=== PATIENT | male | born 1940 | race Caucasian/White ===

== ENCOUNTER 2024-04-07 12:39 | Emergency (ER) | payer MEDICARE, OTHER, SELFPAY ==
[2024-04-07 12:41] VITALS: BMI 24.4
[2024-04-07 12:42] VITALS: BP 144/80
[2024-04-07 12:44] VITALS: BP 144/80
--- NOTE | 2024-04-07 13:13 | ED.GENMED ---
History of Present Illness
General
Chief Complaint: Male Genito-Urinary Symptoms
Source: patient
Time Seen by Provider: 04/07/24 12:49
History of Present Illness
History of Present Illness:
83-year-old male with past medical history of BPH/urinary retention status post chronic suprapubic Christopher catheter, A-fib, DVT, COPD presenting to the ER for evaluation after patient woke up this morning noticing he had decreased urinary output
within his suprapubic catheter today, attempted to flush the Christopher catheter but was meeting significant resistance. Visiting nurse came to the house and attempted to flush the Christopher catheter but the catheter became dislodged prompting them to
recommend the patient come to the ER for further evaluation. Patient does not know who his urologist is but states it is at this facility. He denies any fevers, chills, rigors, back or flank pain or any other concerns at this time.
Past History
Past History
ED Past Medical History: COPD, HTN, Hypercholesterolemia and Other (DVT, PE, history of back pain, peripheral neuropathy, shortness of breath, pneumonia, prostatic hypertrophy, kidney stones, urinary tract infection and retention, arthritis)
ED Past Surgical History: Other (Right knee surgery, hernia surgery, and removal of a cyst)
Patient has exhibited threatening behavior?: No
PSI?: No
Social History
Tobacco: Former smoker
Alcohol: None
Drug: None
Personal:
Living: with family
Employment: Retired
Review of Systems
Review of Systems
All Other Systems: ROS reviewed and negative except as documented in HPI and ROS
Phy Exam
Physical Exam
Physical Exam:
GENERAL: Alert , in no apparent distress
EYE: conjunctiva clear
Head: Normocephalic atraumatic
NECK: Supple,
ENT: mmm.
LUNGS: no acute respiratory distress
ABDOMEN: Suprapubic tract without any overlying erythema or drainage
NEUROLOGICAL: Alert and oriented
SKIN: Warm and dry, skin intact.
MUSCULOSKELETAL: well perfused.
PSYCH: Normal and appropriate interaction.
Scores
Heart Failure Risk
Heart Failure Risk Score: Not Applicable
Heart Score for Chest Pain Patients
STEMI patient?: Not applicable
Withdrawal Assessment of Alcohol
Withdrawal Assessment Completed?: Not applicable
Course
Vital Signs
Initial and Last Documented VS:
Initial Vital Signs
Temp Pulse Resp BP Pulse Ox
98.2 F 80 16 144/80 98
04/07/24 12:42 04/07/24 12:42 04/07/24 12:42 04/07/24 12:42 04/07/24 12:42
Last Documented Vital Signs
Temp Pulse Resp BP Pulse Ox
98.2 F 69 22 144/80 97
04/07/24 12:42 04/07/24 13:45 04/07/24 13:00 04/07/24 12:44 04/07/24 13:45
MDM/Problems Addressed
Differential Diagnosis Includes:
Clogged catheter, less concern for urinary tract infection given he does not have any fevers or other infectious symptoms, suprapubic tract complication
MDM/Problems Addressed:
83-year-old male presenting to the ER for evaluation of suprapubic catheter complication. Patient believes he had an 18 [place] suprapub[address] catheter in place. I attempted to replace with an 18 [place] but was unable to do so. Attempted 16 [place]
which was successful and had return of blood-tinged urine with moderate amount of sediment which I suspect was the likely cause of the initial clogged catheter. Patient otherwise hemodynamically stable and okay for discharge home. I did attempt to
contact patient's via cell phone as she is currently not emergency department but this went to voicemail.
*Pulse Oximetry
Patient hypoxic: no
*Critical Care Note
Total Time (30-74mins, 75-104mins- exclusive of procedures): Not Applicable
Data Reviewed
Review of Other/Old Records Reveals: Labs and Records
Patient Management
Discussion with other providers: Floor Sweeper
Escalation/DeEscalation of care consider admission/obs:
Spoke to urology on-call, Dr. Mayer. Agrees with plan. Hold coumadin 48 hours, will notify Dr. Doyle and have patient call the office Tuesday for follow up
ED Attending Note
-
Portions of this chart may have been created with voice recognition software.� Occasional wrong word or��sound alike� substitutions may have occurred due to the inherent limitations of voice recognition software.
Discharge Plan
Departure
Patient Disposition: Home (Routine Discharge)
Date of Disposition: 04/07/24
Time of Disposition: 13:14
Patient with high blood pressure during this ER visit?: Yes
Discharge Problem:
Encounter for suprapubic catheter care
Instructions: How to Care for Your Christopher Catheter, Male
Prescriptions:
No Action
cetirizine 10 MG tablet
10 mg PO HS
folic acid 0.4 MG tablet
0.8 mg PO DAILY
albuterol sulfate 1 PUFF HFA aerosol inhaler
2 puff inhalation R Q4 PRN (Reason: sob/wheezing)
warfarin 1 mg Tablet
1 mg PO MOTH@1800
warfarin 1 mg tablet
3 mg PO SUTUFRSA@1800
polyethylene glycol 3350 [Miralax] 17 gram Powder In Packet
17 g PO DAILY PRN (Reason: CONSTIPATION)
warfarin 1 mg Tablet
2 mg PO WE@1800
Arthritic D
2 tab PO BID
amoxicillin-pot clavulanate 875-125 mg Tablet
1 tab PO Q12 5 Days Qty: 10 0RF
Interventions
Interventions:
*Risk Screen - Suicide Last Done: 04/07/24 12:42
*General Assessment Last Done: 04/07/24 12:42
*Neglect/Abuse Screening Last Done: 04/07/24 12:42
ED- Fall Risk Assessment Last Done: 04/07/24 12:42
*Nursing Disposition Last Done: 04/07/24 14:50
ED-Male Genitourinary Assessment Last Done: 04/07/24 12:42
Discharge Date and Time
Print Language: [place] ISLANDER
== END 2024-04-07 15:30 | disposition home or self-care (01) ==
LOC: EMR 12:39
PROVIDERS: EMERGENCY PHYSICIAN Emergency Medicine; FAMILY PHYSICIAN Internal Medicine
DX: Z46.6 Encounter for fitting and adjustment of urinary device (principal); E78.00 Pure hypercholesterolemia, unspecified; I10 Essential (primary) hypertension; J44.9 Chronic obstructive pulmonary disease, unspecified; I48.91 Unspecified atrial fibrillation; N40.1 Benign prostatic hyperplasia with lower urinary tract symptoms; Z86.718 Personal history of other venous thrombosis and embolism; Z87.891 Personal history of nicotine dependence
CPT/HCPCS: 51705; 99283; 51702

== ENCOUNTER 2024-07-04 23:58 | Inpatient (IN) | payer MEDICARE, OTHER, SELFPAY ==
[2024-07-04 16:29] VITALS: BP 155/80; BMI 23.5
--- NOTE | 2024-07-04 17:10 | EDRN ---
This RN attempted to manually flush pt.'s suprapubic catheter w/ NSS irrigation solution, about 20 cc NSS flushed into catheter, no resistance met. Pt. did c/o burning during flushing, no output able to be pulled back via irrigation piston, no
drainage noted to urinary drainage bag once reconnected. BOTTOM CAGER at bedside, aware.
[2024-07-04 18:00] VITALS: BP 118/82
--- NOTE | 2024-07-04 18:11 | ED.GENMED ---
History of Present Illness
<Sarah Razo FUNDRAISING SPECIALIST - Last Filed: 07/05/24 00:29>
General
Chief Complaint: Catheter/Tube Problem
Source: patient and spouse
Exam Limitations: none
Time Seen by Provider: 07/04/24 16:48
Nursing documentation reviewed up to this point in time: agreed with
History of Present Illness
History of Present Illness:
83 yo male with hx BPH/urinary retention, chronic suprapubic catheter presents for no drainage. States VN changed the catheter 11 a.m. today and he's had no drainage since. Has been drinking and eating as usual. Denies pain, distention.
Hx Afib, DVT, on Coumadin, COPD.
Past History
<Sarah Razo, FUNDRAISING SPECIALIST - Last Filed: 07/05/24 00:29>
Past History
ED Past Medical History: COPD, HTN, Hypercholesterolemia and Other (DVT, PE, history of back pain, peripheral neuropathy, shortness of breath, pneumonia, prostatic hypertrophy, kidney stones, urinary tract infection and retention, arthritis)
ED Past Surgical History: Other (Right knee surgery, hernia surgery, and removal of a cyst)
Patient has exhibited threatening behavior?: No
PSI?: No
Social History
Tobacco: Former smoker
Alcohol: None
Drug: None
Personal:
Living: with family
Employment: Retired
Review of Systems
<Sarah Razo, FUNDRAISING SPECIALIST - Last Filed: 07/05/24 00:29>
Review of Systems
Allergies reviewed?: Yes
All Other Systems: ROS reviewed and negative except as documented in HPI and ROS
: Reports other (no drainage from suprapubic catheter since changed at 11 a.m.)
Phy Exam
<Sarah Razo, FUNDRAISING SPECIALIST - Last Filed: 07/05/24 00:29>
Physical Exam
Physical Exam:
GENERAL: No acute distress. A&Ox3.
CONSTITUTIONAL: Afebrile.
EYES: clear, conjunctivae normal
ENMT: moist mucus membranes
RESPIRATORY: Regular respirations, nonlabored, lungs clear.
CARDIOVASCULAR: Regular rate and rhythm, no murmurs, no rubs.
GI: Soft, nontender, normal BS. Suprapubic catheter intact, small amount of blood around the opening, no drainage in the bag.
MUSCULOSKELETAL: Moves with ease. Well perfused.
SKIN: Warm, dry, pink
PSYCH: Normal mood and affect. Well kept, interactive and appropriate
NEUROLOGIC: Awake, alert and oriented. No focal neurological deficits
Course
<Sarah Razo NP - Last Filed: 07/05/24 00:29>
Orders/Labs/Results
Orders:
Orders
07/04/24 16:47
Bladder Scan- Treatment ONCE
07/04/24 19:01
CT Abd/pel Without Iv Or Oral Urgent
Comment:
Reason For Exam: suprapubic catheter not draining
07/04/24 21:14
US Urinary Bladder Only Urgent
Reason For Exam: Bladder/balloon evaluation
07/04/24 21:22
IV Insert/Care/Rem.- Treatment PRN
07/04/24 22:18
Basic Metabolic Panel Urgent
Complete Blood Count/With Diff Urgent
07/04/24 22:31
Prothrombin Time Urgent
07/04/24 23:00
Flush (0.9% Sodium Chloride) [Flush (Nss)] See Dose Instructions IV PER PROTOCOL
07/04/24 23:37
UROLOGY CONSULT Urgent
Consulting Provider: Amish Tellez
Was physician already notified: Yes
Comment: suprapubic catheter problem, Christopher catheter insertion
07/04/24 23:42
Urinalysis Reflex To Culture Urgent
Date Specimen was Collected: 07/04/24
Time Specimen was Collected: 23:40
Urine Microscopic Reflex Cult Urgent
Urine Culture Urgent
JENY Source: U
Specimen Description:
Date Specimen was Collected: 07/04/24
Time Specimen was Collected: 23:40
07/04/24 23:43
EKG [Electrocardiogram (*1)] Urgent
Reason for Study: Chest Pain
Other Reason for Exam: effusion
07/04/24 23:45
CR Chest Portable - 1 View Stat
Comment:
Reason For Exam: effusion on Ct a/p
Reason Study Needs to be Portable: Unable to Transport
07/04/24 23:58
Admit/Transfer Patient As Directed
Co-Sign Provider:
Level of Care: Inpatient admission
Assign to:: Medical/Surgical
Physician / Group: Goldie
Diagnosis: SPT dysfunction / Right pleural effusion
Reason for Hospitalization: SPT dysfunction / Right pleural effusion
Expected length of stay greater than two midnights?: Yes
ELOS- Estimated Length of Stay in days: 2
I certify the patient meets the requirements for IP care: Yes
LFT [[id number]] Urgent
Comment: add
Magnesium Urgent
Comment: add
NT-proBNP Urgent
Comment: add
PRN Pain Medication Management As Directed
May give lesser potent ordered pain med per pt: Yes
preference::
Protocol:: Medication orders for pain may be administered in a
manner that supports deferring to patient preference
when the pt is:
- Requesting an ordered lesser potent pain medication.
Least to most potent pain medications are defined
as: acetaminophen < NSAID < tramadol < opioids
(morphine, oxycodone, hydromorphone).
- Requesting a lesser dose of the same medication IF
ORDERED.
- Requesting a less intrusive route of administration
if both routes are prescribed by the provider (PO <
IV).
07/05/24 00:00
Code Status As Directed
Resuscitation Status: Full Code
07/05/24 00:12
Consult Notification Routine
Specialty to Notify: IRAD (Interventional Radiology)
IRAD CONSULT Routine
Consulting Provider: Walter Augustine
Was physician already notified: No
Procedure being ordered, including laterality if applicable: Right Thoracentesis
Acknowledgement that appropriate orders are entered: Yes
Body Fluid Cell Count Routine
What is the Body Fluid: pleural fluid
Comment: post procedure
Body Fluid Glucose Routine
Fluid Source: Pleural
Body Fluid LDH Routine
Fluid Source: Pleural
Body Fluid Protein Routine
Fluid Source: Pleural
Body Fluid pH Routine
Fluid Source: Pleural
07/05/24 00:13
Body Fluid Amylase Routine
Fluid Source: Pleural
Body Fluid Triglycerides Routine
Fluid Source: Pleural
Fluid Culture with Gram Stain Routine
JENY Source: Pleural Fluid
Specimen Description:
Comment: post procedure
Gram Stain Routine
JENY Source: Pleural Fluid
Specimen Description:
Comment: POST PROCEDURE
07/05/24 06:00
LDH IN AM
Comment: post procedure, add on to morning labs if already drawn
LFT [[id number]-[id number]] IN AM
Abnormal Lab Results
07/04/24 07/04/24 07/04/24
22:18 22:31 23:42
RBC 3.71 L 10^6/uL
(4.70-6.10)
Hgb 12.1 L g/dL
(13.0-18.0)
Hct 35.6 L %
(39.0-52.0)
MCV 96.0 H fL
(80.0-94.0)
MCH 32.6 H pg
(27.0-31.0)
Absolute Neuts (auto) 7.0 H 10^3/uL
(1.4-6.5)
Absolute Monos (auto) 0.7 H 10^3/uL
(0.1-0.6)
Neutrophils % 77.7 H %
(42.2-75.2)
Lymphocytes % 13.1 L %
(20.5-51.1)
PT 17.6 H Sec
(11.4-14.6)
BUN 24 H mg/dl
(9-20)
Glucose 109 H mg/dl
(70-99)
Ur Occult Blood Reflex 4+ A
(Negative)
Leukocyte Esterase Rfl 3+ A
(Negative)
Urine RBC 3-6 A /HPF
(0-2)
Urine WBC (Reflex) >100 A /HPF
(0-5)
Urine Bacteria (Reflex) Many A
(Negative)
Urine Albumin (Reflex) 2+ A
(Neg - Trace)
07/04/24 22:18
07/04/24 22:18
Vital Signs
Initial and Last Documented VS:
Initial Vital Signs
Temp Pulse Resp BP Pulse Ox
97.0 F 69 18 155/80 97
07/04/24 16:29 07/04/24 16:29 07/04/24 16:29 07/04/24 16:29 07/04/24 16:29
Last Documented Vital Signs
Temp Pulse Resp BP Pulse Ox
97.0 F 65 18 127/83 97
07/04/24 16:29 07/04/24 23:44 07/04/24 23:44 07/04/24 23:44 07/04/24 23:44
<Sandeep Padron MD - Last Filed: 07/04/24 21:34>
Orders/Labs/Results
Orders:
Orders
07/04/24 16:47
Bladder Scan- Treatment ONCE
07/04/24 19:01
CT Abd/pel Without Iv Or Oral Urgent
Comment:
Reason For Exam: suprapubic catheter not draining
07/04/24 21:14
US Urinary Bladder Only Urgent
Reason For Exam: Bladder/balloon evaluation
07/04/24 21:22
IV Insert/Care/Rem.- Treatment PRN
07/04/24 22:18
Basic Metabolic Panel Urgent
Complete Blood Count/With Diff Urgent
07/04/24 22:31
Prothrombin Time Urgent
07/04/24 23:00
Flush (0.9% Sodium Chloride) [Flush (Nss)] See Dose Instructions IV PER PROTOCOL
07/04/24 23:37
UROLOGY CONSULT Urgent
Consulting Provider: Amish Tellez
Was physician already notified: Yes
Comment: suprapubic catheter problem, Christopher catheter insertion
07/04/24 23:42
Urinalysis Reflex To Culture Urgent
Date Specimen was Collected: 07/04/24
Time Specimen was Collected: 23:40
Urine Microscopic Reflex Cult Urgent
Urine Culture Urgent
JENY Source: U
Specimen Description:
Date Specimen was Collected: 07/04/24
Time Specimen was Collected: 23:40
07/04/24 23:43
EKG [Electrocardiogram (*1)] Urgent
Reason for Study: Chest Pain
Other Reason for Exam: effusion
07/04/24 23:45
CR Chest Portable - 1 View Stat
Comment:
Reason For Exam: effusion on Ct a/p
Reason Study Needs to be Portable: Unable to Transport
07/04/24 23:58
Admit/Transfer Patient As Directed
Co-Sign Provider:
Level of Care: Inpatient admission
Assign to:: Medical/Surgical
Physician / Group: Goldie
Diagnosis: SPT dysfunction / Right pleural effusion
Reason for Hospitalization: SPT dysfunction / Right pleural effusion
Expected length of stay greater than two midnights?: Yes
ELOS- Estimated Length of Stay in days: 2
I certify the patient meets the requirements for IP care: Yes
LFT [Xvzvm-[id number]] Urgent
Comment: add
Magnesium Urgent
Comment: add
NT-proBNP Urgent
Comment: add
PRN Pain Medication Management As Directed
May give lesser potent ordered pain med per pt: Yes
preference::
Protocol:: Medication orders for pain may be administered in a
manner that supports deferring to patient preference
when the pt is:
- Requesting an ordered lesser potent pain medication.
Least to most potent pain medications are defined
as: acetaminophen < NSAID < tramadol < opioids
(morphine, oxycodone, hydromorphone).
- Requesting a lesser dose of the same medication IF
ORDERED.
- Requesting a less intrusive route of administration
if both routes are prescribed by the provider (PO <
IV).
07/05/24 00:00
Code Status As Directed
Resuscitation Status: Full Code
07/05/24 00:12
Consult Notification Routine
Specialty to Notify: IRAD (Interventional Radiology)
IRAD CONSULT Routine
Consulting Provider: Walter Augustine
Was physician already notified: No
Procedure being ordered, including laterality if applicable: Right Thoracentesis
Acknowledgement that appropriate orders are entered: Yes
Body Fluid Cell Count Routine
What is the Body Fluid: pleural fluid
Comment: post procedure
Body Fluid Glucose Routine
Fluid Source: Pleural
Body Fluid LDH Routine
Fluid Source: Pleural
Body Fluid Protein Routine
Fluid Source: Pleural
Body Fluid pH Routine
Fluid Source: Pleural
07/05/24 00:13
Body Fluid Amylase Routine
Fluid Source: Pleural
Body Fluid Triglycerides Routine
Fluid Source: Pleural
Fluid Culture with Gram Stain Routine
JENY Source: Pleural Fluid
Specimen Description:
Comment: post procedure
Gram Stain Routine
JENY Source: Pleural Fluid
Specimen Description:
Comment: POST PROCEDURE
07/05/24 06:00
LDH IN AM
Comment: post procedure, add on to morning labs if already drawn
LFT [[id number]-Liiy-Skrcfyy] IN AM
Abnormal Lab Results
07/04/24 07/04/24 07/04/24
22:18 22:31 23:42
RBC 3.71 L 10^6/uL
(4.70-6.10)
Hgb 12.1 L g/dL
(13.0-18.0)
Hct 35.6 L %
(39.0-52.0)
MCV 96.0 H fL
(80.0-94.0)
MCH 32.6 H pg
(27.0-31.0)
Absolute Neuts (auto) 7.0 H 10^3/uL
(1.4-6.5)
Absolute Monos (auto) 0.7 H 10^3/uL
(0.1-0.6)
Neutrophils % 77.7 H %
(42.2-75.2)
Lymphocytes % 13.1 L %
(20.5-51.1)
PT 17.6 H Sec
(11.4-14.6)
BUN 24 H mg/dl
(9-20)
Glucose 109 H mg/dl
(70-99)
Ur Occult Blood Reflex 4+ A
(Negative)
Leukocyte Esterase Rfl 3+ A
(Negative)
Urine RBC 3-6 A /HPF
(0-2)
Urine WBC (Reflex) >100 A /HPF
(0-5)
Urine Bacteria (Reflex) Many A
(Negative)
Urine Albumin (Reflex) 2+ A
(Neg - Trace)
07/04/24 22:18
07/04/24 22:18
Vital Signs
Initial and Last Documented VS:
Initial Vital Signs
Temp Pulse Resp BP Pulse Ox
97.0 F 69 18 155/80 97
07/04/24 16:29 07/04/24 16:29 07/04/24 16:29 07/04/24 16:29 07/04/24 16:29
Last Documented Vital Signs
Temp Pulse Resp BP Pulse Ox
97.0 F 65 18 127/83 97
07/04/24 16:29 07/04/24 23:44 07/04/24 23:44 07/04/24 23:44 07/04/24 23:44
<Sarah Razo FUNDRAISING SPECIALIST - Last Filed: 07/05/24 00:29>
MDM/Problems Addressed
Differential Diagnosis Includes:
clogged catheter, misplaced catheter
Large R pleural effusion.
MDM/Problems Addressed:
83 yo male with hx BPH/urinary retention, chronic suprapubic catheter presents for no drainage. States VN changed the catheter 11 a.m. today and he's had no drainage since. Has been drinking and eating as usual. Denies pain, distention.
Hx Afib, DVT, on Coumadin, COPD, HLD, HTN.
No infectious symptoms, urinalysis not indicated
Catheter irrigated without resistance but patient expressed discomfort when fluid inserted.
Suprapubic catheter changed, #16 [place] catheter replaced. When the initial catheter was removed it was only in approximately 2 cm, obviously not far enough as the replacement catheter inserted much deeper and then had urine drainage.
Patient tolerated the procedure well. Stable for discharge.
CBC with no clinically significant abnormality
CMP with no clinically significant abnormality
11:00 PM:
INR 1.39, subtherapeutic. Patient may need IR intervention tomorrow so we will hold off on Coumadin correction for now
#16 Fr. Christopher catheter inserted with ease through urethra, draining clear yellow urine
Large right pleural effusion, increased since last study
Patient does not want to keep the penile Christopher catheter in. Urology consult in
11:30 p.m.
Hospitalist notified of admission
U/A pending
<Sarah Razo NP - Last Filed: 07/05/24 00:29>
*Critical Care Note
Total Time (30-74mins, 75-104mins- exclusive of procedures): Not Applicable
ED Attending Note
<Sarah Razo NP - Last Filed: 07/05/24 00:29>
-
Portions of this chart may have been created with voice recognition software.� Occasional wrong word or��sound alike� substitutions may have occurred due to the inherent limitations of voice recognition software.
<Sandeep Padron MD - Last Filed: 07/04/24 21:34>
ED Attending Note
Patient seen and examined by attending physician: Yes
I performed the substantive portion of visit, reviewed & personally made and approve the management plan that is documented in note by myself or SAMARIA.: Yes
ED Attending Note:
83-year-old male here for a blocked suprapubic catheter. Was not in place. Removed and replaced by the nurse practitioner. However tried to confirm by CT and is in the abdominal wall. I sterilely and carefully attempted to readdress it. It felt
like it went into the bladder however no significant urine output. Will repeat ultrasound. CT scan was also reviewed and notes a significant right pleural effusion which the patient and family are aware of. He has no shortness of breath however
if the catheter is not placed correctly it would benefit having him stay for definitive management of his suprapubic catheter along with a right pleural effusion addressed.
Discharge Plan
Departure
Patient Disposition: Admit
Date of Disposition: 07/04/24
Time of Disposition: 22:08
Admit to: Med/Surg
Presentation/result/management discussed w/ accepting MD/DO: Hospitalist
Patient with high blood pressure during this ER visit?: No
Condition: Good
Discharge Problem:
Displacement of Christopher catheter, Pleural effusion on right
Interventions
Interventions:
*Risk Screen - Suicide Last Done: 07/04/24 16:29
*General Assessment Last Done: 07/04/24 16:29
*Neglect/Abuse Screening Last Done: 07/04/24 16:29
*ED COVID-19 Vaccine History Last Done: 07/04/24 17:10
EY-Iiwfcx-Vtibeemxwk Assessment Last Done: 07/04/24 17:06
ED-Male Genitourinary Assessment Last Done: 07/04/24 23:00
--- NOTE | 2024-07-04 18:55 | EDRN ---
Vanesa Razo, PHARMACY ACCOUNT DIRECTOR, placed 16 F [place] suprapubic catheter, initially met resistance but then able to advance catheter, catheter flushed w/ 20 cc NSS, no resistance met, pt. denied pain, catheter drained 20 cc NSS into drainage bag; however, no
additional urine passed through catheter yet.
[2024-07-04 19:00] VITALS: BP 135/83
[2024-07-04 22:23] LABS: % Basophils 0.3 % (0-2); % Eosinophils 0.3 % (0-6); % Immature Granulocytes 0.4 % (0-0.5); % Lymphocytes 13.1 % (20.5-51.1); % Monocytes 8.2 % (1.7-9.3); % Neutrophils 77.7 % (42.2-75.2); Absolute Lymphocytes 1.2 10^3/uL (1.2-3.4); Absolute Monocytes 0.7 10^3/uL (0.1-0.6); Hematocrit 35.6 % (39.0-52.0); Hemoglobin 12.1 g/dL (13.0-18.0); Mean Corpuscular Hgb 32.6 pg (27.0-31.0); Mean Platelet Volume 8.7 fL (7.4-10.4); Nucleated Red Blood Cells % 0 % (-); Platelet Count 183 10^3/uL (130-400); Red Blood Cell Count 3.71 10^6/uL (4.70-6.10); Red Cell Dist. Width 13.6 % (11.5-14.5); White Blood Cell Count 9.1 10^3/uL (4.8-10.8)
[2024-07-04 22:44] LABS: Blood Urea Nitrogen 24 mg/dl (9-20); Carbon Dioxide 24 mmol/L (22-30); Chloride 107 mmol/L (98-107); Estimated Creatinine Clearance 70 ml/min; Glucose 109 mg/dl (70-99); Potassium 3.5 mmol/L (3.5-5.1); Sodium 137 mmol/L (135-145); eGFR > 60.00
[2024-07-04 22:54] LABS: INR 1.39; PT 17.6 Sec (11.4-14.6)
[2024-07-04 23:43] VITALS: BP 127/83
[2024-07-04 23:44] VITALS: BP 127/83
--- NOTE | 2024-07-04 23:46 | HPS.HSE ---
Family Physician
-
Family Physician: Jackie Wilson
Chief Complaint
-
SPT dysfunctoin x 1 day
History of Present Illness
83yo M�HTN/HLD, HFpEF not in Duretics (TTE 08/20/22 wtih EF 50%, G1DD, Mild MR, PaSP 35mmHg.), COPD, Hx PE on Coumadin, BPH, Urinary Retention s/p SPT, Neuropathy/Ambulatory Dysfunction presents to ER for SPT dysfunction. Catheter changed by Visiting
Nurse around 11am today with no drainage.� Denies any sig pain or distention. Denies F/C, DAVIS, CP, SOB, Orthopnea, Abd Pain, N/V/D/C, Dysuria, Flank Pain, Calf or Leg Pain/swelling. Endorses being largely bedbound ambulating with use of wheelchair.
Pt presents V.S.S.�RR18,�Sat 97-98% on RA. WBC 9.1K, Hgb 12.1 g/dL, PLT 183K. BUN/Cr 24/0.9, BG 109, INR 1.39, CT a/p:�Moderate to large right pleural effusion, which has increased compared to CT of the chest of May 26, 2021. Suprapubic catheter
is present within the subcutaneous soft tissues of the right anterior lower pelvic wall, and the catheter is not within the bladder. There is a small amount of air within the anterior bladder. Distention of the rectum and inferior sigmoid colon with
stool, with findings of stercoral colitis. No evidence for perforation. Cholelithiasis. No CT findings to suggest acute cholecystitis. US Bladder: The bladder is visualized, and the suprapubic catheter is not visualized within the bladder. SPT
catheter was unable to be replaced in ER. It was removed and Christopher catheter was placed. Case D/W urology in ER.
Medical History
Past Medical History
Past Medical History: Reports Other (HTN/HLD, COPD, Hx PE on Coumadin,�Hx CKD 3, BPH, Urinary Retention s/p SPT, Neuropathy/Ambulatory Dysfunction )
Past Surgical History: Reports Other (Right knee surgery, hernia surgery, and removal of a cyst)
Social History
Tobacco: Former Smoker (Quit in [employer])
Alcohol: None
Drug: None
Personal:
Living: With Family
Employment: Retired
Family History
Family History: Other (Sister with COPD/Lung Ca. Parents with unknown Hx. )
Allergies / Home Medications
Allergies reflects when Allergies were last updated in [facility].
Home Medications with original date entered in [facility]
Allergy/Medication List:
Allergies
Allergy/AdvReac Type Severity Reaction Status Date / Time
cheese Allergy Unknown Verified 07/04/24 16:29
chocolate flavor Allergy Unknown Verified 07/04/24 16:29
cortisone [Cortisone] Allergy Unknown Verified 07/04/24 16:29
natalia Allergy Unknown - Verified 07/04/24 16:29
natalia yeison
orange (food color) Allergy Vertigo Verified 07/04/24 16:29
from
artifical
coloring
tea tree Allergy Unknown - Verified 07/04/24 16:29
iced tea
morphine AdvReac Vomiting Verified 07/04/24 16:29
Home Medications
albuterol sulfate 90 mcg/actuation aerosol inhaler 2 puff inhalation R Q4 PRN sob/wheezing 05/04/21
cetirizine 10 mg tablet 10 mg PO HS Allergies 05/04/21
warfarin 1 mg tablet 1 mg PO MOTH@1800 Blood clot prevention/tx 01/22/22
warfarin 1 mg tablet 3 mg PO SUTUFRSA@1800 Blood clot prevention/tx 01/22/22
Arthritic D 2 tab PO BID Supplement 08/20/22
warfarin 1 mg tablet 2 mg PO WE@1800 Blood Clot Prevention/Tx 08/20/22
Review of Systems
-
A 12 point ROS was completed and negative except as noted: Yes
Physical Exam
Vital Signs
Vital Signs
Temp Pulse Resp BP Pulse Ox
97.0 F 65 18 127/83 97
07/04/24 16:29 07/04/24 23:44 07/04/24 23:44 07/04/24 23:44 07/04/24 23:44
Physical Exam
General: Poor Appetite, Appears Chronically Ill and Cachectic
HEENT: NormoCephalic, Moist mucous membranes (Dry MM, Poor Dentition), Atraumatic, PERRLA, Crockett Conjunctivae and Neck Nontender; No Neck Mass
Respiratory: Other (Crackles Right lung base. Poor inspiratory effort. )
Cardiac: S1/S2 and Regular Rhythm; No Murmur
GI: Soft, Non Tender, Non Distended and Other (Fungal rash b/l groin/panus.)
Genito-urinary: Christopher (Clear yellow urine. )
Musculoskeletal: No Clubbing, No Cyanosis and No Edema
Skin: Warm, Dry and Rash (see GI exam)
Neuro: Awake, Alert and AO x 3
Hematologic/Lymphatic: No Lymphadenopathy
Psych: Calm
Laboratory Results
-
07/04/24 22:18
07/04/24 22:18
Laboratory Results
PT 17.6 Sec (11.4-14.6) H 07/04/24 22:31
INR 1.39 07/04/24 22:31
Data Reviewed
-
Diagnostic Radiology: Image Personally Visualized and interpreted
CT Scan: Image Personally Visualized and interpreted
Ultrasound: Image Personally Visualized and interpreted
Lab Data: Labs Reviewed by me
Old Records: Reviewed
Impression/Plan
-
Large Right Pleural Effusion
- CT a/p:�Moderate to large right pleural effusion; Dedicated CXR pending
- Likely transudative related to G1DD/CHF, Confirmed with no prior thora
- Will obtain diagnostic/therapeutic thoracentesis with IR consultation
- Coumadin on hold.
Hx HFpEF, chronic
- TTE 08/20/22 wtih EF 50%, G1DD, Mild MR, PaSP 35mmHg.
- Examines intravascularly volume depleted. Check BNP
- No RR distress or Hypoxia
- Not on home diuretics. Trend I&O and Daily wts
- Consider Cardio consult follow results of BNP/CXR
SPT Dysfunction / Hx BPH and Urinary Retention
- CT a/p:�Moderate to large right pleural effusion, which has increased compared to CT of the chest of May 26, 2021. Suprapubic catheter is present within the subcutaneous soft tissues of the right anterior lower pelvic wall, and the catheter is
not within the bladder. There is a small amount of air within the anterior bladder. Distention of the rectum and inferior sigmoid colon with stool, with findings of stercoral colitis. No evidence for perforation. Cholelithiasis. No CT findings to
suggest acute cholecystitis.
- US Bladder: The bladder is visualized, and the suprapubic catheter is not visualized within the bladder. SPT catheter was unable to be replaced in ER. It was removed and Christopher catheter was placed.
- Unsuccessful attempt in replacing SPT. Renal functoin intact
- SPT removed. Christopher placed. Trend I&O. Urology Consulted.
Subtherapeutic INR / Hx PE - INR 1.39. No cardiopulm complaints. Holding coumadin for procedure. Pt was previously taking 1mg daily coumadin but given regimen in [facility] after INR was low. Given procedural plans will hold for now.
COPD - Stable. CXR pending. Continue prn albuterol. Duonebs Q6h prn.
Diet: NPO midnight
DVT Ppx: INR subtherapeutic and held for probable thoracentesis. Heparin 5000u SC Q8h for now
Code Status: Full Code
[2024-07-05] VITALS (7 sets, daily range): BP systolic 73–155; BP diastolic 63–80; BMI 23.4
[2024-07-05 00:06] LABS: Urine Albumin 2+ (Neg - Trace); Urine Bilirubin Negative (Negative); Urine Character Slightly Cloudy (Clear); Urine Color Yellow; Urine Glucose Negative (Negative); Urine Ketone Negative (Negative); Urine Leukocyte 3+ (Negative); Urine Nitrite Negative (Negative); Urine Occult Blood 4+ (Negative); Urine Specific Gravity 1.015 (<1.030); Urine Urobilinogen Negative (Neg - 1+)
[2024-07-05 00:25] LABS: Urine Squamous Cell None seen /LPF (Few)
[2024-07-05 00:26] LABS: Urine Bacteria Many (Negative); Urine White Cell >100 /HPF (0-5)
[2024-07-05 00:42] LABS: NT-proBNP 6910 pg/ml
--- NOTE | 2024-07-05 01:00 | PTCARENOTE ---
Pt arrived to unit from ED, pullover assist x4 from stretcher to bed. VSS, AAOx3, reports pain when turning on sacrum and to left side. Pt oriented to room, call nguyen in reach. Christopher care provided by RN and pt turned to right side with pillow.
[2024-07-05 01:03] LABS: ALT (SGPT) 11 U/L (0-50); AST (SGOT) 16 U/L (17-59); Albumin 3.1 g/dl (3.5-5.0); Alkaline Phosphatase 82 U/L (38-126); Magnesium 1.9 mg/dl (1.6-2.3); Total Bilirubin 0.7 mg/dl (0.2-1.3); Total Protein 6.2 g/dl (6.3-8.2)
[2024-07-05] MEDS: MYCOSTATIN CREAM 1 APPLIC TOPICAL ×3 (02:14→20:10)
[2024-07-05] MEDS: ZYRTEC PO (02:15)
[2024-07-05] MEDS: HEPARIN SC (02:15)
[2024-07-05 07:13] LABS: Hemoglobin 11.5 g/dL (13.0-18.0); Mean Corp Hgb Conc. 33.8 g/dL (33.0-37.0); Mean Corpuscular Hgb 32.3 pg (27.0-31.0); Mean Corpuscular Volume 95.5 fL (80.0-94.0); Mean Platelet Volume 8.9 fL (7.4-10.4); Platelet Count 182 10^3/uL (130-400); Red Blood Cell Count 3.56 10^6/uL (4.70-6.10); Red Cell Dist. Width 13.3 % (11.5-14.5); White Blood Cell Count 9.2 10^3/uL (4.8-10.8)
[2024-07-05 07:20] LABS: INR 1.55; PT 19.1 Sec (11.4-14.6)
[2024-07-05 07:37] LABS: ALT (SGPT) < 10 U/L (0-50); AST (SGOT) 15 U/L (17-59); Albumin 2.9 g/dl (3.5-5.0); Alkaline Phosphatase 77 U/L (38-126); Blood Urea Nitrogen 22 mg/dl (9-20); Calcium 8.8 mg/dl (8.4-10.2); Carbon Dioxide 25 mmol/L (22-30); Chloride 108 mmol/L (98-107); Direct Bilirubin 0.1 mg/dl (0.0-0.4); Estimated Creatinine Clearance 70 ml/min; Glucose 92 mg/dl (70-99); LDH 150 U/L (120-246); Potassium 3.4 mmol/L (3.5-5.1); Sodium 138 mmol/L (135-145); Total Bilirubin 0.9 mg/dl (0.2-1.3); Total Protein 6.2 g/dl (6.3-8.2); eGFR > 60.00
--- NOTE | 2024-07-05 07:58 | CON.CAR ---
Addendum entered and electronically signed by Jean-Pierre Schumacher DO 07/05/24 16:07:
I saw and examined the patient.
The [employer] Porter's note was reviewed and I agree with the note.
Comment:
Plan:
HPI: His suprapubic catheter stopped draining and was admitted with right sided pleural effusion and cardiology is now consulted. Patient lives at home with his who is his primary caregiver, patient has not been out of bed in a year and has
home services, but not yet on Palliative care. Patient had previous colectomy for CA in 2021 and cardiology saw him at that time due to chest pain and elevated Troponin, but patient refused testing at that time and n-showed to his outpatient
cardiology f/u appts. Patient later admitted to [facility] 08/2022 with CAP and he had a small to moderate sized right pleural effusion at that time and he also had an ECG 08/20/22 that showed Afib, but it's not clear that this was ever addressed. Patient
now with suprapubic dysfunction and the tube could not be replaced in the ER and patient is refusing Christopher catheter. During that time in the ER he had a CXR that showed a large right sided pleural effusion and pro-BNP was 6910 and patient was
admitted with possible acute HF. EF was 50% by last echo in 2022. Patient denies SOB or orthopnea. No chest pain.
Prior EKG appears to be Wenkebach with RBBB.
s/p thoracentesis of large right pleural effusion. Continue to evaluate weights and fluid status and consider additional diuretic next 24 hours.
Echo is pending. Last EF 50% by echo August 2022.
Monitor EKG. he is not on any AV tyrell blockers
He has been on warfarin for h/o DVT/PE.
-Subtherapeutic INR of 1.39 on admission and increased dose of warfarin ordered. INRs managed by PCP as an outpatient.
Urology assessing for replacement of suprapubic tube but noted that it would done as outpt
he has long hx of noncompliance with follow up.
Discussed with at bedside.
Discussed with nursing.
Original Note:
Consultation
Consultation Request
Date/Time Consultation Requested: 07/05/24 at 0524
Date/Time Consultation Performed: 07/05/24 at 0732
Requesting Provider: Dr. Orantes
Performing Provider: Dr. Schumacher
Reason for Consultation: Pleural effusion, possible CHF
Medical History
-
History of Present Illness:
Patient came to [facility] ER yesterday after his suprapubic catheter stopped draining and was admitted with right sided pleural effusion and cardiology is now consulted. Patient lives at home with his who is his primary caregiver, patient has not
been out of bed in a year and has home services, but not yet on Palliative care. Patient had previous colectomy for CA in 2021 and cardiology saw him at that time due to chest pain and elevated Troponin, but patient refused testing at that time and
n-showed to his outpatient cardiology f/u appts. Patient later admitted to [facility] 08/2022 with CAP and he had a small to moderate sized right pleural effusion at that time and he also had an ECG 08/20/22 that showed Afib, but it's not clear that this was
ever addressed. Patient now with suprapubic dysfunction and the tube could not be replaced in the ER and patient is refusing Christopher catheter. During that time in the ER he had a CXR that showed a large right sided pleural effusion and pro-BNP was
6910 and patient was admitted with possible acute HF. EF was 50% by last echo in 2022. Patient denies SOB or orthopnea. No chest pain.
PMH:
Chronic suprapubic tube
h/o small to moderate right-sided pleural effusion by CXR 08/20/22
Chronically bedbound
Paroxysmal Afib, seen on ECG 08/20/22
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
cRBBB
h/o DVT/PE
Chronic Coumadin OAC managed by PCP
h/o colon cancer and s/p robotic colectomy 05/28/2021
NSVT, asymptomatic
Liver lesion, incidental finding by CTAP
COPD
HTN
HLD
BPH
Past Medical History
Past Medical History: Other (in HPI)
Past Surgical History: Bowel Resection (colectomy for colon cancer 2021) and Urological (suprapubic catheter)
Social History
Tobacco: Former Smoker
Alcohol: None
Drug: None
Personal:
Living: With Family
Employment: Retired
Family History
Family History: Cancer and Hypertension
Allergies / Home Medications
Allergy/AdvReac Type Severity Reaction Status Date / Time
cheese Allergy Unknown Verified 07/04/24 16:29
chocolate flavor Allergy Unknown Verified 07/04/24 16:29
cortisone [Cortisone] Allergy Unknown Verified 07/04/24 16:29
natalia Allergy Unknown - Verified 07/04/24 16:29
natalia yeison
orange (food color) Allergy Vertigo Verified 07/04/24 16:29
from
artifical
coloring
tea tree Allergy Unknown - Verified 07/04/24 16:29
iced tea
morphine AdvReac Vomiting Verified 07/04/24 16:29
�Medication �Instructions �Recorded �Confirmed �Type
albuterol sulfate 90 mcg/actuation 2 puff inhalation R Q4 PRN 05/04/21 07/05/24 History
aerosol inhaler sob/wheezing
cetirizine 10 mg tablet 10 mg PO HS Allergies 05/04/21 07/05/24 History
warfarin 1 mg tablet 1 mg PO MOTH@1800 Blood clot 01/22/22 07/05/24 History
prevention/tx
warfarin 1 mg tablet 3 mg PO SUTUFRSA@1800 Blood clot 01/22/22 07/05/24 History
prevention/tx
Arthritic D 1 tab PO BID Supplement 08/20/22 07/05/24 History
warfarin 1 mg tablet 2 mg PO WE@1800 Blood Clot 08/20/22 07/05/24 History
Prevention/Tx
Review of Systems
-
History Source: Patient
All other systems: Negative unless noted
Physical Exam
Vital Signs
Temp Pulse Resp BP Pulse Ox
97.3 F 75 20 155/77 97
07/05/24 01:39 07/05/24 01:39 07/05/24 01:39 07/05/24 01:39 07/05/24 01:39
General: NAD. AAO x3
Skin: Warm, dry and pink. Seborrheic keratoses over forehead
HEENT: EOMI, MMM
Heart: SR on tele. Reg, no murmurs
Lungs: RA. Clear anterolaterally without wheeze or rales
Abdomen: +BS, ND, NT, soft
Extremities: No clubbing, cyanosis, lesions or edema B/L
Neuro: Grossly nonfocal
Lab Results
07/05/24 06:29
07/05/24 06:29
Mhf-D-Cfwcxfuuuig Pept 6910 pg/ml 07/04/24 23:58
Impression / Plan
-
PCP: Dr. Eloy Almonte
Cardiology: None, initially seen by Dr Bowie
Impression:
Admitted with suprapubic tube dysfunction and pleural effusion 07/04/24
Chronic suprapubic tube with unsuccessful attempt at replacing tube in the ER 07/04/24
Large right-sided pleural effusion
h/o small to moderate right-sided pleural effusion by CXR 08/20/22
Chronically bedbound
Possible acute on HFpEF
Paroxysmal Afib, seen on ECG 08/20/22
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
cRBBB
h/o DVT/PE
Chronic Coumadin OAC managed by PCP
h/o colon cancer and s/p robotic colectomy 05/28/2021
NSVT, asymptomatic
Liver lesion, incidental finding by CTAP
COPD
HTN
HLD
BPH
Hypokalemia
ECHO 05/06/21: EF 55-60%, mild MR, mild TR, dilated aortic root 3.9 cm
Echo 08/20/2022: EF 50%, stage I diastolic dysfunction, upper normal RV size with low normal RV systolic function, mild MR, mild TR, dilated aortic root at 4 cm, small anterior pericardial effusion without evidence of hemodynamic compromise
Plan:
-Patient came to [facility] ER yesterday after his suprapubic catheter stopped draining and was admitted with right sided pleural effusion and cardiology is now consulted. Patient lives at home with his who is his primary caregiver, patient has not
been out of bed in a year and has home services, but not yet on Palliative care. Patient had previous colectomy for CA in 2021 and cardiology saw him at that time due to chest pain and elevated Troponin, but patient refused testing at that time and
n-showed to his outpatient cardiology f/u appts. Patient later admitted to [facility] 08/2022 with CAP and he had a small to moderate sized right pleural effusion at that time and he also had an ECG 08/20/22 that showed Afib, but it's not clear that this was
ever addressed. Patient now with suprapubic dysfunction and the tube could not be replaced in the ER and patient is refusing Christopher catheter. During that time in the ER he had a CXR that showed a large right sided pleural effusion and pro-BNP was
6910 and patient was admitted with possible acute HF. EF was 50% by last echo in 2022. Patient denies SOB or orthopnea. No chest pain.
-ECG reviewed by me looks like possible Wenckebach and RBBB.
-Patient with large right-sided pleural effusion, he previously had a small to moderate pleural effusion on CXR in 08/2022. His pro-BNP is elevated and there is a h/o acute HF, back in 2021, but he is not chronically on diuretic.
-If patient is agreeable would recommend thoracentesis for diagnostic and therapeutic services. Patient is likely to decline procedures and has been fairly conservative with his care in the last 1-2 years, he is bedbound for the last year.
-Will try a dose of Lasix 40 mg IV x1 now, ordered by me, he might refuse. Patient was not taking a diuretic prior to admission.
-Potassium 3.4 and KCl 20 meq PO x1 now, ordered by me.
-EF was 50% by echo 08/20/22. Recheck echo, ordered by me.
-Looked back at old ECGs from 08/20/22 and patient was labeled as Afib, but not clear that this was ever reviewed with patient. He is is SR now, possibly Wenckebach and he is on warfarin for h/o DVT/PE.
-Subtherapeutic INR of 1.39 on admission and increased dose of warfarin ordered. INRs managed by PCP as an outpatient.
[2024-07-05] MEDS: HEPARIN 5000 UNITS SC (08:25)
[2024-07-05 10:34] LABS: Body Fluid pH 7.44
[2024-07-05 10:42] LABS: Body Fluid Mononuclear 92.6 %; Body Fluid Polymorphonuclear 7.4 %; Body Fluid WBC 298 /CUMM
[2024-07-05 11:02] LABS: Body Fluid Second Tech AMA
[2024-07-05 12:03] LABS: Body Fluid Amylase 53 U/L; Body Fluid Glucose 96 mg/dl; Body Fluid LDH 72 U/L; Body Fluid Protein 4.4 g/dl; Body Fluid Triglycerides < 30 mg/dl
--- NOTE | 2024-07-05 12:20 | WOUNDNOTE ---
RLE (ANTERIOR MEDIAL LOWER)
--- NOTE | 2024-07-05 12:20 | WOUNDNOTE ---
L PLANTAR 2ND TOE TIP
--- NOTE | 2024-07-05 12:20 | WOUNDNOTE ---
FEET/PLANTAR R HEEL (BLANCHABLE RED)
--- NOTE | 2024-07-05 12:25 | WOUNDNOTE ---
[facility] RN note: Patient admitted with urinary catheter tube problem. s/p thoracentesis today. Patient lives with who stated patient has a hospital bed with air overlay mattress.
See H&P for complete history.
PMH: HTN, HF, COPD, PE (Coumadin), BPH, urinary retention, suprapubic catheter, ambulation dysfunction.
Wound Location and type/assessment: Patient admitted with: large area of scattered deep dermal sacral stage 2 pressure injuries vs evolving DTI. R plantar heel blanchable red. R 2nd toe tip callus with pinpoint superficial pink open area. R back
area with red dry skin and raised red bruise (contusion vs evolving cyst?). Scrotal mild MASD. Iram MASD. RLE pink and scabbed skin lesion; suggested to consider making appointment for patient to see a account relationship manager.
Appetite: was NPO for procedure. On diet currently.
Pressure redistribution devices in place: [employer] Accumax. Static air overlay applied while patient was off unit today.
Plan: Patient incontinent of large soft brown stool. Iram care given. Silicone border foam changed on sacrum. Protective foam dressing applied to heels. Patient turned to L semi side lying position with help from ROSA Bryant. Heels off bed with
pillow and air chair cushion.
Updated and showed wound photos to Dr. Orantes who approved skin/wound care. Update JOESPH Baxter.
Care plan to be updated and will follow as needed.
Note to case management requested for discharge: VN if goes home.
Recommend follow up at wound care center upon discharge.
--- NOTE | 2024-07-05 12:25 | WOUNDNOTE ---
[facility] RN note: Patient admitted with urinary catheter tube problem. s/p thoracentesis today. Patient lives with who stated patient has a hospital bed with air overlay mattress.
See H&P for complete history.
PMH: HTN, HF, COPD, PE (Coumadin), BPH, urinary retention, suprapubic catheter, ambulation dysfunction.
Wound Location and type/assessment: Patient admitted with: large area of scattered deep dermal sacral stage 2 pressure injuries. R plantar heel blanchable red. R 2nd toe tip callus with pinpoint superficial pink open area. R back area with red dry
skin and raised red bruise (contusion?). Scrotal mild MASD. Iram MASD.
Appetite: was NPO for procedure. On diet currently.
Pressure redistribution devices in place: [employer] Accumax. Static air overlay applied while patient was off unit today.
Plan: Patient incontinent of large soft brown stool. Iram care given. Silicone border foam changed on sacrum. Protective foam dressing applied to heels. Patient turned to L semi side lying position with help from ROSA Bryant. Heels off bed with
pillow and air chair cushion.
Updated and showed wound photos to Dr. Orantes who approved skin/wound care. Update JOESPH Baxter.
Care plan to be updated and will follow as needed.
Note to case management requested for discharge: VN if goes home.
Recommend follow up at wound care center upon discharge.
[2024-07-05] MEDS: KCL 20 MEQ PO (13:32)
--- NOTE | 2024-07-05 13:49 | W.PN.HOSP.TC ---
Today's Communication/Plan
-
CT of the chest
Echo pending
5 mg of Coumadin tonight
Wound care
Assessment / Plan
Assessment / Plan
83-year-old male came to the hospital with issues with the suprapubic catheter was found to have elevated proBNP and pleural effusion.
CT scan-moderate to large right pleural effusion increased since May 2021. SPC in the subcutaneous soft tissues of the right anterior lower pelvic wall. Small amount of air in the anterior bladder. Distention of the rectum and inferior sigmoid
colon with stool-findings with stercoral colitis. No perforation. Cholelithiasis.
Small soft tissue lump right posterior rib
Deep tissue injury versus stage II sacrum
Right second toe tip-callus
Right heel red
Cardiovascular system S1-S2 appreciated
Chest few rales right side
Abdomen soft and nontender
Skin folds with redness in the suprapubic area
No pedal edema
# Suprapubic tube dysfunction
Neurogenic bladder
Chronic suprapubic tube with unsuccessful attempt at replacing it in the ER on 07/04/2024
Abnormal urinalysis-cover with antibiotics until cultures are back
Urology consulted-Christopher placed.
SPC as outpatient per discussion with urology
# Right pleural effusion
Status post thoracentesis 07/05/2024- 1100 cc of clear yellow pleural fluid.
Fluid is exudative
And cytology
Likely secondary to acute on chronic HFpEF
Cardiology evaluation
Lasix
Repeat echo pending
Check CAT scan of the chest
# Constipation-resolved
# Hypokalemia-replace potassium
# Paroxysmal atrial fibrillation-subtherapeutic INR-Daily Coumadin per INR. Not on any rate controlling agents. Coumadin 5 mg tonight
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
# COPD-as needed nebulizer treatments
# Chronic peripheral neuropathy
# Hyperlipidemia-not on medicines
# History of DVT and PE on Coumadin as OP
# History of colon cancer status post robotic colectomy 05/28/2021
# Bedbound status for the past 1 year-cared for by . with Decub ulcers.
# Hypoalbuminemia
# History of nephrolithiasis
# Remote smoking history
# DVT prophylaxis-subtherapeutic INR-Lovenox
# Full code
Case management to check pricing for Eliquis
Discussed with nursing
Discussed with wound care
Discussed with urology
D/W at bed side
time spent over 50 min
Part of this note was created using voice recognition system. Occasional wrong word or��sound alike� substitutions may have inadvertently occurred due to the inherent limitations of voice recognition software. If noted kindly bring it to my
attention for correction.
Anticipated Discharge: Within 24 hours
Subjective/Interval History
-
Date of Service: July 05, 2024
Objective Data
-
Labs:
Laboratory Results
07/05/24
06:29
WBC 9.2
Hgb 11.5 L
Hct 34.0 L
Plt Count 182
PT 19.1 H
INR 1.55
Sodium 138
Potassium 3.4 L
Chloride 108 H
Carbon Dioxide 25
BUN 22 H
Creatinine 0.9
Glucose 92
Calcium 8.8
Total Bilirubin 0.9
AST 15 L
ALT < 10
Alkaline Phosphatase 77
Vital Signs:
Vital Signs
Temp Pulse Resp BP Pulse Ox
97.8 F 70 18 132/71 98
07/05/24 09:40 07/05/24 11:53 07/05/24 11:53 07/05/24 11:53 07/05/24 11:53
I&O
07/04/24 07/05/24 07/06/24
06:59 06:59 06:59
Output Total 800 / 800
Balance -800 / -800
[2024-07-05] MEDS: STERILE WATER FOR INJECTION 10 ML IV (15:30)
[2024-07-05] MEDS: ROCEPHIN 1000 MG IV (15:30)
[2024-07-05] MEDS: LOVENOX 80 MG SC (15:30)
--- NOTE | 2024-07-05 15:37 | CM ---
Patient seen bedside w/ spouse, initial assessment completed. Patient is a 83yo M�HTN/HLD, HFpEF not in Duretics (TTE 08/20/22 wtih EF 50%, G1DD, Mild MR, PaSP 35mmHg.), COPD, Hx PE on Coumadin, BPH, Urinary Retention s/p SPT, Neuropathy/Ambulatory
Dysfunction presents to ER for SPT dysfunction.
Patient resides w/ spouse in a 2STH w/ a steep driveway, 1 step onto the porch, 1 step into the home. Ramp access. Patient is dependent, primarily bedbound. Patient resides on the first floor, hospital bed located in the family room. Patient has a
w/c, a RW, raised toilet seat, chair lift to the second floor. Per spouse, patient was sleeping in the recliner prior to fall but sleeps in hospital bed now. Patient has commode but does not use anymore, patient wears adult diapers. Spouse assists
w/ bathing, dressing, changing patient after incontinence. Per spouse, patient is an assist of 2 w/ sitting up and transfers as she cannot complete on her own. Patient is current w/ [facility] for VN/PT/OT. [facility] and [facility] in the
past.
Patient has private pay caregiver 2 days/week from 11a-3p that assist w/ ADLs and exercises w/ patient. Spouse has been getting recommendations from friends and family on caregivers to increase hours of support in the home. Spouse shared that prev
caregiver is available Saturdays and in case of emergencies as well.
Plan: Home, BERTA w/ [facility]
--- NOTE | 2024-07-05 15:47 | PTOTSP ---
Dysphagia Eval
No overt signs of dysphagia or aspiration at the bedside. Patient endorse infrequent dysphagia with dry solids. If concerned for aspiration component given changes to right lung on CT, consider video swallow study as appropriate. Dysphagia risk
factors include COPD and breathy vocal quality concerning for changes to laryngeal function.
Recommend:
1. Regular, Thin
2. Upright as close to 90 degrees as possible, small sips/bites, slow rate, reflux precautions
3. Oral care 3x daily
4. Brief f/u to determine if instrumental testing warranted
[2024-07-05 15:54] LABS: TSH 1.05 uIU/ml (0.47-4.68)
--- NOTE | 2024-07-05 16:27 | W.PN.URO.CBU ---
Today's Communication / Plan
-
no gu intervention unless clot retention stc
Assessment / Plan
-
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 Spoke wit pt /
wofe explained that we woulodlove to replace sp tube tara but nelson rocharadha g toracentses and on sq heparin and a=warfarin Explaned riske for eva plan unlkes s bleeds is to go home with juarez and schedule sp tube with possible lovenox window
as outpatient
Diagnosis
-
Date of Service: July 05, 2024
-
Patient Diagnosis:
bph retention woith malpositioned sp tube removed and replaced with juarez
Post Op Day:
Subjective
-
somne blood around juarez
Objective
-
Vital Signs
Temp Pulse Resp BP Pulse Ox
98.1 F 95 20 127/80 97
07/05/24 15:00 07/05/24 15:00 07/05/24 15:00 07/05/24 15:00 07/05/24 15:00
Intake and Output
07/04/24 07/05/24 07/06/24
06:59 06:59 06:59
Output Total 800 / 800
Balance -800 / -800
Output:
Urine, Juarez 800 / 800
Laboratory Results
07/05/24 06:29
07/05/24 06:29
Review of Systems
-
: Difficulty Voiding and Bleeding
Physical Exam
-
General - well developed, well nourished, no acute distress
Chest - clear bilaterally
Abdomen - soft, non-tender, positive bowel sounds, no CVAT, no incisional pain or distention
Genitalia - normal
Rectal - normal
Skin - warm & dry with no rash
Neuro - AOx3, no motor deficits
Extremities - no clubbing, no cyanosis, no edema
Incision - clean, dry
Dressing - clean, dry, intact
Care Review
Data Reviewed
Discussed with: Hospitalist, Nursing and Family
Ultrasound: Image Pers Reviewed
[2024-07-05] MEDS: COUMADIN 5 MG PO (18:54)
[2024-07-05] MEDS: ZYRTEC 10 MG PO (21:19)
[2024-07-06] MEDS: LOVENOX 80 MG SC ×2 (02:38→13:08)
[2024-07-06 06:00] VITALS: BMI 23.7
[2024-07-06 06:43] LABS: INR 1.92; PT 22.4 Sec (11.4-14.6)
[2024-07-06 06:56] LABS: Blood Urea Nitrogen 23 mg/dl (9-20); Calcium 8.6 mg/dl (8.4-10.2); Carbon Dioxide 25 mmol/L (22-30); Chloride 107 mmol/L (98-107); Estimated Creatinine Clearance 70 ml/min; Glucose 83 mg/dl (70-99); Potassium 3.5 mmol/L (3.5-5.1); Sodium 138 mmol/L (135-145); eGFR > 60.00
[2024-07-06] MEDS: MYCOSTATIN CREAM 1 APPLIC TOPICAL (08:36)
--- NOTE | 2024-07-06 11:00 | PN.CDI ---
CDI
- -
CDI:
Physician Documentation Request
Admit Date: 07/04/24 23:58
Dear Doctor Rolanda,
The diagnosis of bifascicular block was included in the signed EKG 07/05
Please indicate in your progress notes if you are in agreement that the above diagnosis is valid for this patient:
____ - bifascicular block is a valid diagnosis (Please include it in your progress notes)
____ - bifascicular block is not a valid diagnosis for this patient
____ - Other
Use of terms such as suspected, likely, concern for, or probable are acceptable for a diagnosis that is being evaluated, monitored or treated as if it exists and can be coded in the inpatient setting, when documented at the time of discharge.
Thank you,
Vicki Power RN BSN
CDI Specialist
tiger text
Please use your independent medical judgment in providing your response.
--- NOTE | 2024-07-06 11:50 | W.PN.UPDATE ---
Update Note
Progress Note Update
H/o neurogenic bladder and urinary retention s/p cystoscopy/SPT insertion in 2021.
No interim obstruction/hematuria episodes in ~24 mo until most recent admission.
Suspect malpositioned catheter w/ balloon inflated in SQ tissues by VN.
Given recent thoracentesis of 1100 cc of fluid and overall medical co-morbidities (in addition to Coumadin OAC), no indication for urgent SPT replacement.
Plan:
- F/U w/ Dr. Doyle in 2-3 weeks for preop visit to discuss SPT replacement (outpatient procedure)
- Maintain urethral catheter to drainage (as per home regimen)
D/w spouse (Cristy) this AM - spouse very appreciative of explanation and urologic plan going forward.
--- NOTE | 2024-07-06 12:56 | W.PN.URO.CBU ---
Today's Communication / Plan
-
HOME WHEN STABLE WITH PENILE JUAREZ
Assessment / Plan
-
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 Spoke wit pt /
wofe explained that we woulodlove to replace sp tube tara but nelson burroughs g toracentses and on sq heparin and a=warfarin Explaned riske for eva plan unlkes s bleeds is to go home with juarez and schedule sp tube with possible lovenox window
as outpatient
Diagnosis
-
Date of Service: July 06, 2024
-
Patient Diagnosis:
Post Op Day:
Patient Diagnosis:
bph retention woith malpositioned sp tube removed and replaced with juarez
Post Op Day:
Subjective
-
URINE CLEAR
Objective
-
Vital Signs
Temp Pulse Resp BP Pulse Ox
97.4 F 72 20 116/63 98
07/05/24 22:42 07/05/24 22:42 07/05/24 22:42 07/05/24 22:42 07/05/24 22:42
Intake and Output
07/05/24 07/06/24 07/07/24
06:59 06:59 06:59
Intake Total 500 / 500
Output Total 800 / 800 700 / 700
Balance -800 / -800 -200 / -200
Intake:
Oral fluids 450 / 450
IV piggybacks 50 / 50
Output:
Urine, Juarez 800 / 800 700 / 700
Laboratory Results
07/05/24 06:29
07/06/24 05:54
Review of Systems
-
: Difficulty Voiding
Physical Exam
-
General - well developed, well nourished, no acute distress
Chest - clear bilaterally
Abdomen - soft, non-tender, positive bowel sounds, no CVAT, no incisional pain or distention
Genitalia - normal
Rectal - normal
Skin - warm & dry with no rash
Neuro - AOx3, no motor deficits
Extremities - no clubbing, no cyanosis, no edema
Incision - clean, dry
Dressing - clean, dry, intact
Care Review
Data Reviewed
Discussed with: Nursing and Family
[2024-07-06] MEDS: ROCEPHIN 1000 MG IV (13:05)
[2024-07-06] MEDS: STERILE WATER FOR INJECTION 10 ML IV (13:05)
--- NOTE | 2024-07-06 14:19 | W.PN.CARDCBS ---
Addendum entered and electronically signed by Ken Black MD 07/06/24 15:44:
I saw and examined the patient.
The Associate Manager [employer]'s note was reviewed and I agree with the note.
Comment: Briefly, 83-year-old man past medical history of heart failure with preserved ejection fraction, paroxysmal atrial fibrillation on warfarin, DVT/PE and neurogenic bladder with suprapubic catheter who presented initially with dysfunction of
his suprapubic catheter. proBNP was checked which was found to be elevated and he was identified as having recurrence of prior pleural effusion on chest x-ray therefore cardiology was consulted for heart failure. Suspect he has some degree of
chronic heart failure with preserved ejection fraction. Not reporting any symptoms of decompensated heart failure and O2 sats are normal on room air. Not overtly volume overloaded on exam. Echo here is unchanged from prior, preserved LV function
and no high-grade valve disease.
As he declined diuretics not much to add
Stable for discharge from my perspective
Original Note:
Today's Communication / Plan
-
Status post thoracentesis 07/05/2024
Replete potassium
Echo stable
Give Coumadin 3 mg this evening
Impression / Plan
-
PCP: Dr. Eloy Almonte
Cardiology: None, initially seen by Dr Bowie
Impression:
Admitted with suprapubic tube dysfunction and pleural effusion 07/04/24
Chronic suprapubic tube with unsuccessful attempt at replacing tube in the ER 07/04/24
Large right-sided pleural effusion
h/o small to moderate right-sided pleural effusion by CXR 08/20/22
s/p thoracentesis, yielding 1100 cc of clear yellow pleural fluid 07/05/2024
Chronically bedbound
Possible acute on HFpEF
Paroxysmal Afib, seen on ECG 08/20/22
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
cRBBB
h/o DVT/PE
Chronic Coumadin OAC managed by PCP
h/o colon cancer and s/p robotic colectomy 05/28/2021
NSVT, asymptomatic
Liver lesion, incidental finding by CTAP
COPD
HTN
HLD
BPH
Hypokalemia
ECHO 05/06/21: EF 55-60%, mild MR, mild TR, dilated aortic root 3.9 cm
Echo 08/20/2022: EF 50%, stage I diastolic dysfunction, upper normal RV size with low normal RV systolic function, mild MR, mild TR, dilated aortic root at 4 cm, small anterior pericardial effusion without evidence of hemodynamic compromise
Echo 07/05/2024: EF 50 to 55%. Mild MR, mild TR, mild AI with PAP 15 to 20 mmHg. Trivial pericardial effusion.
Plan:
-Admitted with suprapubic tube dysfunction and pleural effusion 07/04/24. Now with new juarez and plan for outpt eval for replacement of SPT in a few weeks
-Patient with large right-sided pleural effusion, s/p thoracentesis, yielding 1100 cc of clear yellow pleural fluid on 07/05/2024.
-Symptoms improved following thoracentesis.
-Recommended dose of Lasix 07/05/2024 but patient declined. Patient was not taking a diuretic prior to admission.
-Potassium 3.5. Would replete with additional dose of KCl 20 meq PO x1 now, ordered by me.
-EF was 50-55% by echo 07/06/24. Stable compared to prior
-He is is SR now, possibly Estela, also had atach earlier this admission and he is on warfarin for h/o DVT/PE.
-Subtherapeutic INR of 1.39 on admission, now 1.92 after getting 5 mg Coumadin 07/05. Give 3 mg Coumadin this evening. INRs managed by PCP as an outpatient.
HPI 07/05/2024:
Patient came to [facility] ER 07/04/24 after his suprapubic catheter stopped draining and was admitted with right sided pleural effusion and cardiology is now consulted. Patient lives at home with his who is his primary caregiver, patient has not been
out of bed in a year and has home services, but not yet on Palliative care. Patient had previous colectomy for CA in 2021 and cardiology saw him at that time due to chest pain and elevated Troponin, but patient refused testing at that time and
n-showed to his outpatient cardiology f/u appts. Patient later admitted to [facility] 08/2022 with CAP and he had a small to moderate sized right pleural effusion at that time and he also had an ECG 08/20/22 that showed Afib, but it's not clear that this was
ever addressed. Patient now with suprapubic dysfunction and the tube could not be replaced in the ER and patient is refusing Juarez catheter. During that time in the ER he had a CXR that showed a large right sided pleural effusion and pro-BNP was
6910 and patient was admitted with possible acute HF. EF was 50% by last echo in 2022. Patient denies SOB or orthopnea. No chest pain.
Progress Note - Guide Visitor
Subjective
Date of Service: July 06, 2024
Patient seen and examined. Patient lying in bed watching TV. Reports he is feeling well less short of breath.
Objective
Labs:
07/05/24 06:29
07/06/24 05:54
Labs
Hgb 11.5 g/dL (13.0-18.0) L 07/05/24 06:29
Hct 34.0 % (39.0-52.0) L 07/05/24 06:29
Plt Count 182 10^3/uL (130-400) 07/05/24 06:29
PT 22.4 Sec (11.4-14.6) H 07/06/24 05:54
INR 1.92 07/06/24 05:54
Sodium 138 mmol/L (135-145) 07/06/24 05:54
Potassium 3.5 mmol/L (3.5-5.1) 07/06/24 05:54
BUN 23 mg/dl (9-20) H 07/06/24 05:54
Creatinine 0.9 mg/dL (0.7-1.3) 07/06/24 05:54
Glucose 83 mg/dl (70-99) 07/06/24 05:54
Vital Signs and I&O:
Vital Signs
Temp Pulse Resp BP Pulse Ox
97.4 F 72 20 116/63 98
07/05/24 22:42 07/05/24 22:42 07/05/24 22:42 07/05/24 22:42 07/05/24 22:42
Vital Signs
Temp Pulse Resp BP Pulse Ox
97.4 F 72 20 116/63 98
07/05/24 22:42 07/05/24 22:42 07/05/24 22:42 07/05/24 22:42 07/05/24 22:42
Intake & Output
07/04/24 07/05/24 07/06/24 07/07/24
06:59 06:59 06:59 06:59
Intake Total 500 / 500
Output Total 800 / 800 700 / 700
Balance -800 / -800 -200 / -200
Physical Exam
Physical Exam
GEN: No distress, awake, Ox3
HEENT: supple, anicteric, mmm
LUNGS: Decreased breath sounds with some crackles at right base otherwise CTA, no wheezes/rales
CV: Reg, S1/S2, no murmur, rub or gallop
ABD: soft, BS+, NT/ND
EXT: No edema, clubbing or cyanosis
NEURO: Gross non-focal
SKIN: No rash, warm, pink
--- NOTE | 2024-07-06 14:51 | W.PN.HOSP.TC ---
Addendum entered and electronically signed by Pantera Orantes MD 07/07/24 08:16:
EKG- Bifascicular block
Addendum entered and electronically signed by Pantera Orantes MD 07/06/24 15:03:
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
Add Ceftin
Original Note:
Today's Communication/Plan
-
discharge
Assessment / Plan
Assessment / Plan
83-year-old male came to the hospital with issues with the suprapubic catheter was found to have elevated proBNP and pleural effusion.
CT scan-moderate to large right pleural effusion increased since May 2021. SPC in the subcutaneous soft tissues of the right anterior lower pelvic wall. Small amount of air in the anterior bladder. Distention of the rectum and inferior sigmoid
colon with stool-findings with stercoral colitis. No perforation. Cholelithiasis.
CT scan of the chest-small right pleural effusion. Airspace consolidation in the right base atelectasis or pneumonia. Peripheral reticulonodular opacity of the right middle lobe may represent infectious or inflammatory or may be related to
interstitial fibrosis. Trace left pleural fluid. Granulomatous changes within the mediastinum both hilum spleen and liver. More right coronary artery calcification
Cardiovascular system S1-S2 appreciated
Chest few rales right side
Abdomen soft and nontender
Skin folds with redness in the suprapubic area
No pedal edema
Feels well
# Suprapubic tube dysfunction
Neurogenic bladder
Chronic suprapubic tube with unsuccessful attempt at replacing it in the ER on 07/04/2024
Abnormal urinalysis-cover with antibiotics until cultures are back
Urology consulted-Christopher placed.
SPC as outpatient per discussion with urology
# Right pleural effusion
Status post thoracentesis 07/05/2024- 1100 cc of clear yellow pleural fluid.
Fluid is exudative
Add cytology-called cytology lab they will add it on
Likely secondary to acute on chronic HFpEF
Cardiology evaluation
Lasix was recommended patient is refusing
Repeat echo unchanged
CAT scan without any evidence of malignancy
# Coronary artery calcification-outpatient cardiology workup
# Constipation-resolved
# Hypokalemia-replace potassium
# Paroxysmal atrial fibrillation-subtherapeutic INR-Daily Coumadin per INR. Not on any rate controlling agents. Coumadin 3 mg tonight. Patient is scheduled to get INR checked next week and gets it done through Dr. Wilson.
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
# COPD-as needed nebulizer treatments
# Chronic peripheral neuropathy
# Hyperlipidemia-not on medicines
# History of DVT and PE on Coumadin as OP
# History of colon cancer status post robotic colectomy 05/28/2021
# Bedbound status for the past 1 year-cared for by . with Decub ulcers.
# Hypoalbuminemia
# History of nephrolithiasis
# Remote smoking history
# DVT prophylaxis-subtherapeutic INR-Lovenox
# Full code
Patient has slight hoarseness of the voice. Recommended outpatient ENT evaluation
Discussed with nursing
Discussed with cardiology. No Lasix for discharge
Discussed with urology
Called , no answering machine.
More than 30 minutes spent in discharge including
Final examination of the patient
Summarizing hospital stay
Instructions for continuing care to all relevant caregivers
Preparation of discharge records, prescriptions, and referral forms
Total time spent (in minutes): 33 min
Part of this note was created using voice recognition system. Occasional wrong word or��sound alike� substitutions may have inadvertently occurred due to the inherent limitations of voice recognition software. If noted kindly bring it to my
attention for correction.
Anticipated Discharge: Today
Subjective/Interval History
-
Date of Service: July 06, 2024
Objective Data
-
Labs:
Laboratory Results
07/06/24
05:54
PT 22.4 H
INR 1.92
Sodium 138
Potassium 3.5
Chloride 107
Carbon Dioxide 25
BUN 23 H
Creatinine 0.9
Glucose 83
Calcium 8.6
Vital Signs:
Vital Signs
Temp Pulse Resp BP Pulse Ox
97.4 F 72 20 116/63 98
07/05/24 22:42 07/05/24 22:42 07/05/24 22:42 07/05/24 22:42 07/05/24 22:42
I&O
07/05/24 07/06/24 07/07/24
06:59 06:59 06:59
Intake Total 500 / 500
Output Total 800 / 800 700 / 700
Balance -800 / -800 -200 / -200
[2024-07-06 15:00] VITALS: BP 112/63
--- NOTE | 2024-07-06 15:03 | W.DS.TRANS ---
Addendum entered and electronically signed by Pantera Orantes MD 07/06/24 15:53:
Dictation- [id number]
Original Note:
DC Summary - Electrical Manager
-
Discharge Instructions:
Sleep Apnea Risk Intermediate
Discharge Diagnosis/Procedures Suprapubic tube dysfunction
Christopher catheter placement
Right pleural effusion status post thoracentesis
07/05/2024
Constipation
Hypokalemia
Atrial fibrillation
Chronic right bundle branch block
COPD
Peripheral neuropathy
High cholesterol
History of DVT and PE
History of colon cancer status post robotic
colectomy
Bedbound status
Diet Restrict fluids to 64 oz,2 Gram Sodium
Activity As tolerated,With assistance
Driving Restrictions No driving
Blood Work INR next week
Other Services VN
Specialty Instructions Weigh Daily
Instructions:
Stand-Alone Forms:
Changes to Home Medications: Yes
Discharge Medications:
DC Medications w/original date entered in [facility]
albuterol sulfate 90 mcg/actuation aerosol inhaler 2 puff inhalation R Q4 PRN sob/wheezing 05/04/21
cetirizine 10 mg tablet 10 mg PO HS Allergies 05/04/21
warfarin 1 mg tablet 1 mg PO MOTH@1800 Blood clot prevention/tx 01/22/22
warfarin 1 mg tablet 3 mg PO SUTUFRSA@1800 Blood clot prevention/tx 01/22/22
warfarin 1 mg tablet 2 mg PO WE@1800 Blood Clot Prevention/Tx 08/20/22
cefuroxime axetil 500 mg tablet 500 mg PO BID Urinary issue #10 tabs 07/06/24
polyethylene glycol 3350 17 gram oral powder packet 17 g PO DAILY Constipation #0 ea 07/06/24
Home Medication Changes
MiraLAX and Ceftin are new
Pending Results: Yes
Additional Pending Results:
Final urine cultures
--- NOTE | 2024-07-06 15:30 | CM ---
Patient stable for d/c.
Current w/ [facility], placed referral in [facility] to resume services
Spoke w/ spouse, informed of d/c
Ambulance transport scheduled for 5:30 pm
IMM verbally reviewed, copy given to patient, copy on chart
[facility]

Plan: Home, BERTA w/ [facility]
[2024-07-06] MEDS: COUMADIN 3 MG PO (16:59)
--- NOTE | 2024-07-08 10:32 | W.PN.UPDATE ---
Update Note
Progress Note Update
Pleural fluid Coag neg Staph.
Sensitivities and further identification pending.
Unclear if this is a contaminant or not.
Gram stain was negative
Called patient at home. He is feeling well denies any shortness of breath or fever he said he has 98.6 temperature.
Discussed with patient and that he needs to come back if he is running fevers or gets short of breath.
Also discussed to call Dr. Wilson for an appointment
I reiterated the need to be seen by an ENT and pulmonary as outpatient for further workup on exudative fluid as outlined in the discharge
Cytology is still pending
== END 2024-07-06 17:56 | disposition home health service (06) | DRG 698 ==
LOC: 4 WEST ACU 23:58
PROVIDERS: Radiology Vascular & Interventional Radiology; Registered Nurse; ADMITTING PHYSICIAN Internal Medicine; ATTENDING PHYSICIAN Hospitalist; CONSULT PHYSICIAN Specialist; EMERGENCY PHYSICIAN Emergency Medicine; FAMILY PHYSICIAN Internal Medicine; OTHER PHYSICIAN Nuclear Medicine Nuclear Cardiology
PROC: 0W993ZZ Drainage of Right Pleural Cavity, Percutaneous Approach (ICD-10-PCS; 2024-07-05)
DX: T83.098A Other mechanical complication of other urinary catheter, initial encounter (principal); I50.33 Acute on chronic diastolic (congestive) heart failure; I13.0 Hypertensive heart and chronic kidney disease with heart failure and stage 1 through stage 4 chronic kidney disease, or unspecified chronic kidney disease; J90 Pleural effusion, not elsewhere classified; I48.0 Paroxysmal atrial fibrillation; E87.6 Hypokalemia; E86.9 Volume depletion, unspecified; G62.9 Polyneuropathy, unspecified; Z99.3 Dependence on wheelchair; Z74.01 Bed confinement status; J44.9 Chronic obstructive pulmonary disease, unspecified; Z91.199 Patient's noncompliance with other medical treatment and regimen due to unspecified reason; Z87.891 Personal history of nicotine dependence; Z79.01 Long term (current) use of anticoagulants; Y84.8 Other medical procedures as the cause of abnormal reaction of the patient, or of later complication, without mention of misadventure at the time of the procedure; N18.30 Chronic kidney disease, stage 3 unspecified
CPT/HCPCS: 32555; 71045; 71260; 74176; 76857; 80048; 80053; 80076; 81003; 81015; 82150; 82945; 83615; 83735; 83880; 83986; 84157; 84443; 84478; 85025; 85027; 85610; 87015; 87070; 87077; 87086; 87147; 87186; 87205; 88112; 89051; 92526; 92610; 93005; 93306; 99285; Q9950; Q9967

== ENCOUNTER 2024-10-10 15:19 | Inpatient (IN) | payer MEDICARE, OTHER, SELFPAY ==
[2024-10-10 11:43] VITALS: BP 144/114
[2024-10-10 12:00] VITALS: BP 134/80
[2024-10-10 12:01] LABS: Hematocrit 34.6 % (39.0-52.0); Hemoglobin 11.3 g/dL (13.0-18.0); Mean Corp Hgb Conc. 32.7 g/dL (33.0-37.0); Mean Corpuscular Volume 97.2 fL (80.0-94.0); Nucleated Red Blood Cells % 0 % (-); Platelet Count 229 10^3/uL (130-400); Red Cell Dist. Width 13.5 % (11.5-14.5)
[2024-10-10 12:09] LABS: Urine Character Cloudy (Clear)
[2024-10-10 12:22] LABS: Urine Red Blood Cell 0-2 /HPF (0-2); Urine White Cell >100 /HPF (0-5)
[2024-10-10 12:26] LABS: ALT (SGPT) < 10 U/L (0-50); AST (SGOT) 13 U/L (17-59); Albumin 3.0 g/dl (3.5-5.0); Alkaline Phosphatase 96 U/L (38-126); Blood Urea Nitrogen 19 mg/dl (9-20); Calcium 8.6 mg/dl (8.4-10.2); Carbon Dioxide 26 mmol/L (22-30); Chloride 105 mmol/L (98-107); Glucose 132 mg/dl (70-99); Potassium 3.8 mmol/L (3.5-5.1); Sodium 136 mmol/L (135-145); Total Protein 6.4 g/dl (6.3-8.2); eGFR > 60.00
--- NOTE | 2024-10-10 12:59 | ED.GENMED ---
History of Present Illness
General
Chief Complaint: Skin Problem
Source: patient
Exam Limitations: none
Time Seen by Provider: 10/10/24 11:47
Nursing documentation reviewed up to this point in time: agreed with
History of Present Illness
History of Present Illness:
Patient presents to ED secondary to worsening rash on his back over the past 2 months. Patient was evaluated by visiting nurse on multiple occasions, including today. Pt was initially evaluated by pcp who opened up 'boil' in the office. Since then,
area of redness has worsened. Pt is currently not taking any abx. Denies fever/chills. Denies nausea/vomiting. Denies dizziness. In addition, patient states that he has chronic indwelling juarez catheter which is scheduled to be switched to
suprapubic catheter with (urology).
Past History
Past History
ED Past Medical History: COPD, HTN, Hypercholesterolemia and Other (DVT, PE, history of back pain, peripheral neuropathy, shortness of breath, pneumonia, prostatic hypertrophy, kidney stones, urinary tract infection and retention, arthritis)
ED Past Surgical History: Other (Right knee surgery, hernia surgery, and removal of a cyst)
Patient has exhibited threatening behavior?: No
PSI?: No
Social History
Tobacco: Former smoker
Alcohol: None
Drug: None
Personal:
Living: with family
Employment: Retired
Review of Systems
Review of Systems
Allergies reviewed?: Yes
All Other Systems: ROS reviewed and negative except as documented in HPI and ROS
Constitutional: Reports no symptoms; Denies fever or chills
EENT: Reports no symptoms
Respiratory: Reports no symptoms
Cardiac: Reports no symptoms
ABD/GI: Reports no symptoms
Musculoskeletal: Reports no symptoms
Skin: Reports rash
Neurological: Reports no symptoms
Phy Exam
Physical Exam
Physical Exam:
Physical Exam
General: mild distress, not acutely ill. afebrile
Head: nc/at. eomi
Neck: supple. normal range of motion.
Heart: s1/s2 regular rate and rhythm
Lungs: no acute respiratory distress. clear bilaterally
Abdomen: normal bowel sounds. not tender.
Neuro: alert and oriented x 3. no focal neurological deficits
Skin: erythema back, covering 3/4 of back, extending to upper buttock, without any open drainage.
Psychiatric: well kept. interactive and cooperative
Extremities: no edema. no calf tenderness.
Course
Orders/Labs/Results
Orders:
Orders
10/10/24 11:55
Complete Blood Count/With Diff Urgent
Comprehensive Metabolic Panel Urgent
Urinalysis Reflex To Culture Urgent
Date Specimen was Collected: 10/10/24
Time Specimen was Collected: 11:53
Urine Microscopic Reflex Cult Urgent
Urine Culture Urgent
JENY Source: U
Specimen Description:
Date Specimen was Collected: 10/10/24
Time Specimen was Collected: 11:53
10/10/24 13:15
Vancomycin [Vancocin] 2,000 mg 0.9% Sodium Chloride 500 ml [Nss] 500 ml IV NOW
10/10/24 13:28
Lactic Acid Q4H
Comment: CANCEL 2nd LACTIC ACID IF 1st LACTIC ACID IS LESS THAN 2
Blood Culture Q30M
JENY Source: Blood/Venous
Specimen Description:
10/10/24 13:36
Blood Culture Q30M
JENY Source: Blood/Venous
Specimen Description:
10/10/24 14:55
Admit/Transfer Patient As Directed
Co-Sign Provider:
Level of Care: Inpatient admission
Assign to:: Medical/Surgical
Physician / Group: Hospitalist
Diagnosis: Cellulitis
Reason for Hospitalization: Cellulitis
Expected length of stay greater than two midnights?: Yes
ELOS- Estimated Length of Stay in days: 3
I certify the patient meets the requirements for IP care: Yes
10/10/24 14:56
PRN Pain Medication Management As Directed
May give lesser potent ordered pain med per pt: Yes
preference::
Protocol:: Medication orders for pain may be administered in a
manner that supports deferring to patient preference
when the pt is:
- Requesting an ordered lesser potent pain medication.
Least to most potent pain medications are defined
as: acetaminophen < NSAID < tramadol < opioids
(morphine, oxycodone, hydromorphone).
- Requesting a lesser dose of the same medication IF
ORDERED.
- Requesting a less intrusive route of administration
if both routes are prescribed by the provider (PO <
IV).
10/10/24 14:58
Code Status As Directed
Resuscitation Status: Full Code
10/10/24 Dinner
Cholesterol Lowering
At Your Request: Full Participation
Cholesterol Lowering: Sodium, 2 Gram
10/10/24 16:36
Acetaminophen [Tylenol] 650 mg PO Q6HPRN PRN mild pain
10/10/24 16:36
WOUND/OSTOMY CONSULT Routine
Reason for Consult: Cellulitis back, sacral, buttock
Activity As Directed
Activity Level: Out of Bed-Early Mobility
Intake/ Output As Directed
Frequency: Per unit guidelines
Vital Signs As Directed
Frequency: Per unit guidelines
10/10/24 18:00
CeFAZolin 1 GRAM [Ancef] 1 gram in 5 ml IV Q8H
Warfarin [Coumadin] 1 mg PO WESA@1800
10/10/24 22:00
Cetirizine HCl [Zyrtec] 5 mg PO HS
10/11/24 05:04
Basic Metabolic Panel IN AM
Complete Blood Count/No Diff IN AM
10/11/24 08:00
Citric Acid Capsules 1 cap PO DAILY
10/11/24 16:00
Warfarin [Coumadin] 2 mg PO SUMOTUTHFR@1600
Abnormal Lab Results
10/10/24 10/10/24
11:55 13:28
RBC 3.56 L 10^6/uL
(4.70-6.10)
Hgb 11.3 L g/dL
(13.0-18.0)
Hct 34.6 L %
(39.0-52.0)
MCV 97.2 H fL
(80.0-94.0)
MCH 31.7 H pg
(27.0-31.0)
MCHC 32.7 L g/dL
(33.0-37.0)
Glucose 132 H mg/dl
(70-99)
Lactic Acid 2.2 H mmol/L
(0.7-2.0)
AST 13 L U/L
(17-59)
Albumin 3.0 L g/dl
(3.5-5.0)
Ur Occult Blood Reflex 4+ A
(Negative)
Leukocyte Esterase Rfl 3+ A
(Negative)
Urine WBC (Reflex) >100 A /HPF
(0-5)
Urine Bacteria (Reflex) Many A
(Negative)
Urine Albumin (Reflex) 3+ A
(Neg - Trace)
10/10/24 11:55
10/10/24 11:55
Vital Signs
Initial and Last Documented VS:
Initial Vital Signs
Temp Pulse Resp BP Pulse Ox
97.6 F 87 16 144/114 97
10/10/24 11:43 10/10/24 11:43 10/10/24 11:43 10/10/24 11:43 10/10/24 11:43
Last Documented Vital Signs
Temp Pulse Resp BP Pulse Ox
97.8 F 79 18 114/71 96
10/11/24 07:31 10/11/24 07:31 10/11/24 07:31 10/11/24 07:31 10/11/24 07:31
MDM/Problems Addressed
MDM/Problems Addressed:
Patient with extensive rapidly progressing cellulitic changes noted on his back. As such, patient will be admitted for IV antibiotics and further evaluation
*Pulse Oximetry
SaO2: 96
Oxygen Mode of Delivery: Room air
Patient hypoxic: no
*Critical Care Note
Total Time (30-74mins, 75-104mins- exclusive of procedures): Not Applicable
ED Attending Note
-
Portions of this chart may have been created with voice recognition software.� Occasional wrong word or��sound alike� substitutions may have occurred due to the inherent limitations of voice recognition software.
Discharge Plan
Departure
Patient Disposition: Admit
Date of Disposition: 10/10/24
Time of Disposition: 13:19
Admit to: Med/Surg
Presentation/result/management discussed w/ accepting MD/DO: Hospitalist
Discharge Problem:
Cellulitis, Acute UTI
Interventions
Interventions:
*Risk Screen - Suicide Last Done: 10/10/24 17:21
*General Assessment Last Done: 10/10/24 11:45
*Neglect/Abuse Screening Last Done: 10/10/24 11:45
*ED- Fall Risk Assessment Last Done: 10/10/24 11:45
*ED COVID-19 Vaccine History Last Done: 10/10/24 17:21
*Nursing Disposition Last Done: 10/10/24 16:25
ED-Skin Assessment Last Done: 10/10/24 16:25
Discharge Date and Time
Discharge Date/Time: 10/10/24 16:26
[2024-10-10 14:00] VITALS: BP 160/71
[2024-10-10] MEDS: VANCOCIN 540 MG IV (14:21)
--- NOTE | 2024-10-10 14:27 | HPS.HSE ---
Addendum entered and electronically signed by Abigail Baird MD 10/10/24 20:05:
This is an addendum to the H&P written by Merlyn Leon on 10/10/2024. �Patient seen and examined independently with resident.
84-year-old male past medical history of BPH with chronic Juarez, prior suprapubic catheter dysfunction with removal, right pleural effusion, paroxysmal atrial fibrillation on Coumadin, chronic respiratory failure, COPD, peripheral neuropathy,
chronic back pain, hypercholesteremia, colon cancer status post robotic colectomy, bedbound, DVT/PE presenting with ongoing redness, crusting and pain of his back
Patient had a lump on his back status post incision few months ago with progressive redness of the back although timeline unclear.
Nurse also thought his urine was cloudy. �Juarez catheter was changed this morning. �No fever. �No nausea or vomiting.
Vital signs normal. �Labs unremarkable apart from stable anemia 11.3.
Lactic acid 2.2.
Urinalysis shows greater than 100 WBC, cloudy urine although seems to always be like this.
Patient with skin breakdown/cellulitis of the back secondary to immobility. �Patient does have a lump which appears to be a lipoma versus cyst. �Does not appear infected and not draining. �Cefazolin. �Wound care. �Patient already using air mattress
at home.
Patient with Juarez catheter reportedly cloudy. �Likely this is colonization rather than true infection. �Urine culture pending. �Juarez catheter was changed this morning appears to be functioning. �Family insistent on having repeat suprapubic
catheter placed during this admission although already scheduled as outpatient.�
Reached out to urology to see if suprapubic catheter can be performed this admission due to patient preference but they recommended outpatient follow up. �Gentle IV fluids.
Original Note:
Family Physician
-
Family Physician: Jackie Wilson
Chief Complaint
-
Painful red rash on back
History of Present Illness
84 year old male with history of COPD, HTN, hypercholesterolemia, DVT, chronic back pain, prostatic hypertrophy, kidney stones, chronic juarez, urinary retention, arthritis, who presents with large area of a panful red rash on his back. He was in his
usual state of health until a few months ago when his noted a skin lump on his right mid back. His visiting nurse pricked the lump with a needle a few months ago but is unclear if any/what kid of discharge was present when it was disturbed.
Over time, the lump remained relatively the same size with some brown drainage but notes that he started having some skin irritation on his back. She treated with unspecified skin barrier protection cream and antiseptic spra but skin rash
continued to worsen. Visiting nurse came by today to exchange juarez catheter, and sent him to the ED for skin infection. She also believes that his urine was cloudy today. notes that the catheter was changed today.
He denies and fevers, chills, suprapubic pain, or new back pain.
He was seen in a video visit by PCP 6 weeks ago for stage II sacral ulcer and draining wound on the back. Cefalexin was prescribed to start only if it worsens, but this was never started.
Of note, he is bed-bound and cannot turn without assistance.
He is scheduled for suprapubic catheter placement on 10/29/[address] Doyle.
Medical History
Past Medical History
Past Medical History: Reports Other (Suprapubic tube dysfunction, chronic Juarez catheter, right pleural effusion s/p thoracentesis 07/05/2024, atrial fibrillation, chronic right bundle branch block, COPD, peripheral neuropathy, hypercholesterolemia,
history of DVT/PE, history of colon cancer status post robotic colectomy, bedbound stat)
Past Surgical History: Reports Orthopedic (Right knee surgery) and Other (Hernia repair)
Social History
Tobacco: Former Smoker (Remote history, quit decades ago)
Alcohol: None
Drug: None
Personal:
Living: With Family
Family History
Family History: Other (lung cancer)
Allergies / Home Medications
Allergies reflects when Allergies were last updated in [facility].
Home Medications with original date entered in [facility]
Allergy/Medication List:
Allergies
Allergy/AdvReac Type Severity Reaction Status Date / Time
cheese Allergy Unknown Verified 07/04/24 16:29
chocolate flavor Allergy Unknown Verified 07/04/24 16:29
cortisone (Cortisone) Allergy Unknown Verified 07/04/24 16:29
natalia Allergy Unknown - Verified 07/04/24 16:29
natalia yeison
orange (food color) Allergy Vertigo Verified 07/04/24 16:29
from
artifical
coloring
tea tree Allergy Unknown - Verified 07/04/24 16:29
iced tea
morphine AdvReac Vomiting Verified 07/04/24 16:29
Home Medications
cetirizine 10 mg tablet 10 mg PO HS Allergies 05/04/21
warfarin 1 mg tablet 1 mg PO WESA@1800 Blood clot prevention/tx 01/22/22
warfarin 1 mg tablet 2 mg PO SUMOTUTHFR@1600 Blood Clot Prevention/Tx 08/20/22
Citric Acid Capsules 1 cap PO DAILY Supplement 10/10/24
acetaminophen 325 mg tablet (Tylenol) 650 mg PO Q6HPRN PRN mild pain 10/10/24
glucos 375 mg-msm 375 [id number] 20 mg-antiarthritic3 tablet (Arthri-Flex) 1 tab PO DAILY Supplement 10/10/24
Review of Systems
-
History Source: Patient
Constitutional: Denies Fever or Chills
Abdomen/GI: Denies Abdominal Pain, Nausea, Vomiting or Diarrhea
: Reports Juarez; Denies Bleeding
Skin: Reports Rash (painful, red, diffuse distribution over back and buttock) and Other (small subcutaneous lump on right mid back)
Physical Exam
Vital Signs
Vital Signs
Temp Pulse Resp BP Pulse Ox
97.6 F 66 16 160/71 98
10/10/24 11:43 10/10/24 14:00 10/10/24 14:08 10/10/24 14:00 10/10/24 14:00
Physical Exam
General: No Apparent Distress and Other (Nontoxic-appearing)
HEENT: NormoCephalic and Anicteric; No Moist mucous membranes (somewhat dry)
Respiratory: Clear, Non Labored Respirations and Other (reduced airflow in right lobe. Anterior auscultation); No Wheezes, Rales, Rhonchi or Crackles
Cardiac: S1/S2 and Regular Rhythm; No Murmur, Rub or Gallop
GI: Soft, Non Tender, Non Distended and Normal Bowel Sounds
Genito-urinary: Clear Urine and Juarez; No Bloody Urine
Musculoskeletal: No Clubbing, No Cyanosis and No Edema
Skin: Rash (large, red, tender confluent rash on back and buttocks, without focal abscess. small subcutaneous lump on mid right back)
Neuro: Awake, Alert and Oriented
Psych: Calm
Laboratory Results
-
10/10/24 11:55
10/10/24 11:55
Laboratory Results
Lactic Acid 2.2 mmol/L (0.7-2.0) H 10/10/24 13:28
Total Bilirubin 1.0 mg/dl (0.2-1.3) 10/10/24 11:55
AST 13 U/L (17-59) L 10/10/24 11:55
ALT < 10 U/L (0-50) 10/10/24 11:55
Alkaline Phosphatase 96 U/L (38-126) 10/10/24 11:55
Impression/Plan
-
IMPRESSION:
84 year old male with history of COPD, HTN, hypercholesterolemia, DVT, chronic back pain, prostatic hypertrophy, kidney stones, chronic juarez, urinary retention, arthritis who presents with cellulitis and cloudy urine in juarez bag.
PLAN:
Cellulitis:
Skin breakdown, secondary to bedbound status.
Large area of tender red warm skin - back, sacral area and buttock
- Was given Vancomycin in ED. Will start cefazolin for cellulitis
- Wound care
Subcutaneous lump:
- Small nondraining, soft, mobile subcutaneous lump
- Lipoma vs cyst.
- Appears stable. Monitor for changes
Urinary retention, BPH:
- Chronic juarez. Prior history of suprapubic catheter dysfunction which was changed to juarez.
- Pt scheduled for SBC placement on 10/29.
- Pt and family request urology be contacted for evaluation and possible exchange during this admission.
- Juarez exchanged successfully by visiting nurse this morning
Positive urinalysis:
- Likely colonization, not acute UTI
- Hx of cultures positive for Klebsiella, pseudomonaa, and enterocossus
- juarez exchanged this morning by visiting nurse. No need to exchange.
Elevated Lactic acid:
- Mildly elevated, likely dehydrated
- Gentle IVF and recheck
Hx of DVT/PE:
- On Coumadin. continue. Check INR in AM
Bedbound status
Hx of afib
Hx of pleural effusion
Hx of colon cancer status post robotic colectomy
DVT ppx: Coumadin
Code status: Full Code
--- NOTE | 2024-10-10 16:14 | CM ---
CM reviewed chart and met with pt and bedside in ED. Lives with in 2 story home, has ramp to enter.
Is primarily bedbound, has hospital bed on first floor, has commode but is usually incontinent.
Has RW, WC, raised toilet seat, chair lift to second floor. states he no longer walks.
His assists with ADL, bathing and personal care.
Has caregivers 3-4 days a week from 11a to 3p and Tuesday from 9a-11a.
Has juarez catheter, [facility] comes monthly to change. Per his , pt is scheduled to have suprapubic catheter placed by Dr Doyle on 10/29/24 at .
Pt uses [facility] for transport.
Hx [facility] and [facility]
Anticipate home with [facility] and caregivers, CM will continue to follow for any discharge planning needs.
[2024-10-10 16:42] VITALS: BP 137/83
[2024-10-10] MEDS: ANCEF 5 IV (17:46)
[2024-10-10] MEDS: COUMADIN 1 MG PO (17:46)
--- NOTE | 2024-10-10 18:45 | PTCARENOTE ---
Pt received from ED and pulled over to bed from ED stretcher w/ who is the primary caregiver @bedside. Pt AAOx3, bedbound @baseline. VSS. Christopher catheter in place draining clear yellow urine. Pt complaining of suprapubic pain. NSS bolus ordered
in the ED and not administered. Confirmed with MD that bolus is to be administered now. Order changed by pharmacy. POC ongoing.
[2024-10-10] MEDS: NSS 500 IV (20:06)
[2024-10-10] MEDS: ZYRTEC 5 MG PO (22:54)
[2024-10-10 23:00] VITALS: BP 139/71
[2024-10-11] MEDS: ANCEF 5 IV ×3 (02:31→17:10)
[2024-10-11 05:42] LABS: Hematocrit 32.3 % (39.0-52.0); Hemoglobin 10.7 g/dL (13.0-18.0); Mean Corp Hgb Conc. 33.1 g/dL (33.0-37.0); Mean Corpuscular Volume 96.1 fL (80.0-94.0); Platelet Count 177 10^3/uL (130-400); Red Cell Dist. Width 13.5 % (11.5-14.5)
[2024-10-11 05:51] LABS: Blood Urea Nitrogen 18 mg/dl (9-20); Calcium 8.7 mg/dl (8.4-10.2); Carbon Dioxide 25 mmol/L (22-30); Chloride 108 mmol/L (98-107); Estimated Creatinine Clearance 67 ml/min; Glucose 83 mg/dl (70-99); Potassium 3.8 mmol/L (3.5-5.1); Sodium 137 mmol/L (135-145); eGFR > 60.00
[2024-10-11 07:31] VITALS: BP 114/71
[2024-10-11] MEDS: BenGay-Like 1 APPLIC TOPICAL ×3 (08:14→21:56)
--- NOTE | 2024-10-11 10:04 | WOUNDNOTE ---
WO RN note: Patient admitted with painful, red rash on back
See H&P for complete history.
PMH: BPH with chronic Christopher, prior suprapubic catheter dysfunction with removal, right pleural effusion, paroxysmal atrial fibrillation on Coumadin, chronic respiratory failure, COPD, peripheral neuropathy, chronic back pain, hypercholesteremia,
colon cancer status post robotic colectomy, bedbound, DVT/PE presenting with ongoing redness, crusting and pain of his back
Wound Location and type/assessment: Patient admitted with flakey red rash on back, with lipoma on right lower back. Redness appears a combination of friction, shearing and moisture as patient is bedbound and cared for at home. Back is painful when
touched and patient said feeling is 'burning' in nature. Sacral area with stage 2 scattered open areas surrounded by dry skin. Stage 1 bilateral heels. Open hypergranular wound to right lower leg. Patient reports this wound is chronic and he has
seen a carbonation equipment operator but there is no plan. Patient is otherwise a poor historian and repeatedly says 'ask my ' who was not present at time of assessment.
Appetite: BMI WNL, reports good appetite
Pressure redistribution devices in place: Static air overlay placed and properly inflated, turning schedule,heels off-loaded with pillow, patient turned on right semi-side laying position
Plan: Will recommend mineral oil to dry skin on back and sacrum, while protecting open areas with Calazime ointment. Protective foam to heels, right lower leg dressing maintained. Will confirm orders with hospitalist and update nurse. Updated care
plan and will follow as needed.
Note to case management of equipment requested for discharge: Patient will need air mattress at SNF.
Recommend follow up at wound care center upon discharge. Air mattress
--- NOTE | 2024-10-11 10:22 | CON.ID ---
Addendum entered and electronically signed by Giovanna Reddy MD 10/11/24 15:49:
I personally performed a history and physical exam of the patient and discussed management with the resident. I reviewed the resident's note and agree with the documented findings and plan of care HPI/CC.
History obtained from the patient as well as from his at bedside. 84 year old male with Afib on Coumadin, bedbound developed a nodule on his right mid to lower back around mid August. Initially there was bleeding. Home visiting nurse tried
to zo the lesion but only blood came out. was putting warm compress over nodule without decrease in size. He then subsequently developed redness over and around this nodule which then extended up and down his back. Skin with brown flaking
skin. Patient complains of severe burning like pain especially when he is turned over. Pain mostly localized over the nodule. No fevers or chills. Home nurse sent him to ED due to rash and cloudy urine from the juarez.
Exam:
Right lower back approx golf ball size nodule, soft, tender, no drainage. Large area of dark erythroderma with dry flaking yellow brown skin over and around the nodule.
Assessment:
# Painful nodule right lower back
.? cyst, hemorrhagic vs infected cyst, lipoma, vs other
# Dermatitis over nodule and right posterior torso does not appear cellulitic
Plan:
-Recommend surgical consult to drain/excise soft tissue nodule. If + purulence, please send cx.
-Continue local wound care.
- Off load right side.
Original Note:
Consultation
-
Date/Time Consultation Requested: 10/11/2024 09:06
Date/Time Consultation Performed: 10/11/2024 10:00
Requesting Provider: Jerel Mathias MD
Performing Provider: Adolph Smith MD ; Giovanna Reddy MD
Reason for Consultation: Back cellulitis
Chief Complaint / Past History
Chief Complaint
Pain and rash on the back
History of Present Illness
This is a 84-year-old male with past medical history of BPH on chronic Juarez, previous suprapubic catheter dysfunction with removal, right pleural effusion, paroxysmal A-fib on Coumadin, chronic respiratory failure, COPD, peripheral neuropathy,
chronic back pain, colon cancer s/p robotic colectomy, hypercholesteremia, DVT/PE, is bedbound, presented on 10/10/2024 with concerns of redness, crusting and pain on his back.
He has a lump on his back and it was drained few months ago however he continues to have redness.
Initial evaluation showed that WBC count was within normal limits and lactic acid was 2.2 other electrolytes within normal limits. Urine with cloudy appearance and 4+ occult blood as well as leukocyte Estrase positive and urine WBCs present.
Per chart review the patient was sent to the emergency department by the visiting nurse who came to exchanged the Juarez and there was a concern of cloudy urine as well as she was concerned about the same skin infection on the back. He did get a
Juarez catheter changed before coming to the emergency department.
He denies any fevers or chills, denies any abdominal or suprapubic pain.
He is scheduled for suprapubic catheter replacement on 10/29/[address] Doyle.
Past History
Past Medical History: Other (Suprapubic tube dysfunction, chronic Juarez catheter, right pleural effusion s/p thoracentesis 07/05/2024, atrial fibrillation, chronic right bundle branch block, COPD, peripheral neuropathy, hypercholesterolemia, history
of DVT/PE, history of colon cancer s/p robotic colectomy, bedboun)
Past Surgical History: Orthopedic (R Knee)
Additional Past Surgical History:
Hernia repair
Allergy History:
cheese Allergy (Verified 07/04/24 16:29)
Unknown
chocolate flavor Allergy (Verified 07/04/24 16:29)
Unknown
cortisone (Cortisone) Allergy (Verified 07/04/24 16:29)
Unknown
natalia Allergy (Verified 07/04/24 16:29)
Unknown - natalia yeison
orange (food color) Allergy (Verified 07/04/24 16:29)
Vertigo from artifical coloring
tea tree Allergy (Verified 07/04/24 16:29)
Unknown - iced tea
morphine Adverse Reaction (Verified 07/04/24 16:29)
Vomiting
Medications Reviewed: Yes
Current Antibiotics:
Ancef 1G q8h
Social History
Tobacco: Former Smoker
Alcohol: None
Drug: None
Personal:
Living: With Family
Family History
Family History: Not Pertinent
Review of Systems
Review of Systems
General: Negative Fever or Chills
Cardiovascular: Negative Chest Pain
Gasteroenterology: Negative Nausea
Genital / Urological: Negative Hematuria or Flank Pain
Musculoskeletal: Other (back pain)
Neurological: Negative Headache
Vital Signs
Temp Pulse Resp BP Pulse Ox
97.8 F 79 18 114/71 96
10/11/24 07:31 10/11/24 07:31 10/11/24 07:31 10/11/24 07:31 10/11/24 07:31
Physical Exam
Physical Exam
Constitutional: Comfortable and Chronically Ill
Cardiovascular: Regular Rate and S1/S2
Pulmonary: Non Labored
Gastrointestinal: Soft and Non Tender
Wound: None
Neurological: Awake, Alert and Oriented
Psychological: Calm
PATIENT REFUSED THE BACK EXAM AND STATES HE DOES NOT WANT TO MOVE OR TURN
Lab / Diagnostic Study Results
10/11/24 05:04
10/11/24 05:04
Abs Immat Gran (auto) 0.0 10^3/uL (0-0.05) 10/10/24 11:55
Absolute Neuts (auto) 5.6 10^3/uL (1.4-6.5) 10/10/24 11:55
Absolute Lymphs (auto) 2.9 10^3/uL (1.2-3.4) 10/10/24 11:55
Absolute Monos (auto) 0.6 10^3/uL (0.1-0.6) 10/10/24 11:55
Absolute Basos (auto) 0.1 10^3/uL (0-0.2) 10/10/24 11:55
Immature Gran % 0.4 % (0-0.5) 10/10/24 11:55
Neutrophils % 60.7 % (42.2-75.2) 10/10/24 11:55
Lymphocytes % 31.0 % (20.5-51.1) 10/10/24 11:55
Monocytes % 6.1 % (1.7-9.3) 10/10/24 11:55
Eosinophils % 1.0 % (0-6) 10/10/24 11:55
Basophils % 0.8 % (0-2) 10/10/24 11:55
Lactic Acid Cancelled 10/10/24 17:30
Ur Squamous Epith Cells 3-5 /LPF (Few) 10/10/24 11:55
Microbiology Results
Micro:
10/10/24 13:36 Blood Culture - Pending
Blood/Venous
10/10/24 13:28 Blood Culture - Pending
Blood/Venous
10/10/24 11:55 Urine Culture - Pending
Urine
Assessment / Plan
#Cellulitis of the back secondary to immobility
#Mass/LUMP; lipoma vs cyst
- Afebrile with WBC in normal range
- continue ancef for now while cx pending
- monitor temp curve and wbc
- recommend surgical eval.
[2024-10-11] MEDS: HYDROPHOR 1 APPLIC TOPICAL (10:28)
--- NOTE | 2024-10-11 10:43 | WOUNDNOTE ---
BACK, SACRAL/COCCYX 1938, [id number]
--- NOTE | 2024-10-11 10:46 | WOUNDNOTE ---
RIGHT LOWER LEG
--- NOTE | 2024-10-11 10:46 | WOUNDNOTE ---
RIGHT HEEL- BLANCHABLE RED DISCOLORATION
--- NOTE | 2024-10-11 13:27 | W.PN.HOSP.TC ---
Addendum entered and electronically signed by Jerel Mathias MD 10/11/24 16:21:
Sacral Stage 2 pressure injury POA and Stage1 bilateral heel pressure injuries POA
Original Note:
Today's Communication/Plan
-
Assessment / Plan
Assessment / Plan
Lipoma versus cyst versus infected cyst on back with surrounding area of cellulitis
Continue Ancef
Consult ID
Consult surgery for excision
BPH with urinary retention
Chronic Christophre
Family requesting SPT, per admission note urology contacted this should be done as an outpatient
Asymptomatic bacteriuria
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
On Ancef for cellulitis which would also cover any type of urinary tract infection
Elevated lactic acid
IV fluids
Likely related to dehydration
History of DVT PE
Continue Coumadin
Anticipated Discharge: 24 - 48 hours
Subjective/Interval History
-
Date of Service: October 11, 2024
Seen and examined. No new complaints. No acute overnight events.
Objective Data
-
Labs:
Laboratory Results
10/11/24
05:04
WBC 7.7
Hgb 10.7 L
Hct 32.3 L
Plt Count 177 D
Sodium 137
Potassium 3.8
Chloride 108 H
Carbon Dioxide 25
BUN 18
Creatinine 0.9
Glucose 83
Calcium 8.7
Vital Signs:
Vital Signs
Temp Pulse Resp BP Pulse Ox
97.8 F 79 18 114/71 96
10/11/24 07:31 10/11/24 07:31 10/11/24 07:31 10/11/24 07:31 10/11/24 10:30
I&O
10/10/24 10/11/24 10/12/24
06:59 06:59 06:59
Output Total 750 / 750
Balance -750 / -750
Physical Exam
-
General: No Apparent Distress and Comfortable
HEENT: Normocephalic and Atraumatic
Respiratory: Clear to Auscultation
Cardiac: Regular Rhythm
GI: Soft, Nontender and Nondistended
Genito-urinary: Christopher (yellow urine)
Musculoskeletal: No Clubbing and No Cyanosis
Psych: Calm
[2024-10-11 14:35] LABS: INR 2.07; PT 23.8 Sec (11.4-14.6)
--- NOTE | 2024-10-11 14:59 | PN.CDI ---
CDI
- -
CDI:
Physician Documentation Request
Admit Date: 10/10/24 15:19
Dear Doctor Stew,
Please review the following and provide your response in the progress notes.
Clinical Indicators:
Pt admitted with Lipoma versus cyst versus infected cyst on back with surrounding area of cellulitis.
10/11 WO RN NOte: ' .... Sacral area with stage 2 scattered open areas surrounded by dry skin. Stage 1 bilateral heels....'
Physician documentation of the type and location of wounds is required for compliant documentation. Based on the above clinical findings and your assessment, please provide the following in your progress note:
1. Location of the ulcer/wound, including laterality.
2. Type (etiology) of ulcer/wound:
Sacral Stage 2 pressure injury POA and Stage1 bilateral heel pressure injuries POA
Sacral and bilateral heels non-pressure injuries POA
Other
Use of terms such as suspected, likely, concern for, or probable (associated with a specific diagnosis that is being evaluated, monitored, or treated as if it exists) are acceptable and can be coded in the inpatient setting, when documented at the
time of discharge.
Thank you,
Sylvie Ramirez RN, BSN
CDI Specialist
[place] [facility]
Please use your independent medical judgment in providing your response.
*Source: National Pressure Ulcer Advisory Panel (NPUAP)
[2024-10-11 15:31] VITALS: BP 132/68
[2024-10-11] MEDS: COUMADIN 2 MG PO (15:56)
--- NOTE | 2024-10-11 16:03 | CM ---
CM following for discharge planning; pt has caregivers in the home and is known to [facility]; referral to [facility] will be sent for resumption of care.
Plan: Discharge to home with , caregivers and [facility].
--- NOTE | 2024-10-11 17:13 | W.PN.UPDATE ---
Update Note
Progress Note Update
Pt seen and evaluated at bedside. Lipoma of back with surrounding cellulitis. They noticed the lump 2 weeks ago. D/w and home nurse, Home nurse attempted aspiration with no return. There is no fluctuance, no purulence, no puncta. I aspirated
the lesion with a 20G needle with zero return. The lipoma is not involved in the infection, which in my opinion is limited to his skin and is caused by lack of appropriate offloading. This was explained to pt and , they verbalized understanding.
GS will s/o pls call with ?s
Full consult note to follow
[2024-10-11] MEDS: ZYRTEC 5 MG PO (20:16)
[2024-10-11 22:59] VITALS: BP 144/69
[2024-10-12] MEDS: ANCEF 5 IV ×3 (03:21→17:11)
[2024-10-12 05:46] LABS: INR 2.01; PT 23.3 Sec (11.4-14.6)
[2024-10-12 07:28] VITALS: BP 133/77
[2024-10-12] MEDS: HYDROPHOR 1 APPLIC TOPICAL (08:57)
[2024-10-12] MEDS: BenGay-Like 1 APPLIC TOPICAL ×2 (08:57→17:12)
--- NOTE | 2024-10-12 09:16 | W.PN.ID1 ---
Addendum entered and electronically signed by Giovanna Reddy MD 10/12/24 14:36:
I saw and evaluated the patient. I reviewed the resident�s note and agree with findings and plan as documented in the resident�s note.
# Painful lipoma right lower back
# Dermatitis over nodule and right posterior torso
- Surgery attempted to aspirate/zo the nodule without fluid returne. Nodule deemed as lipoma
- Can transition to empiric cephalexin 500mg po qid x 7 day course.
ID will sign off.
D/W Dr. Alysia Mathias
Original Note:
Date of Service
Date of Service: October 12, 2024
Today's Communication
7 day course of keflex upon dc. ok for dc from ID stand point
ID will s/o
Assessment / Plan
# Painful mass/LUMP; lipoma vs cyst versus hemorrhagic
# Dermatitis of the nodule in right posterior torso does not appear cellulitic; likely exacerbated because of inadequate offloading
- Afebrile with WBC in normal range
- Surgery tried to aspirate the lesion however there was 0 return.
- continue ancef for now while cx pending; NGTD; can switch to 7 days course ok keflex.
- monitor temp curve and wbc
- Continue local wound care
- id will s/o
Chief Complaint
-: Other (Pain and rash on the back)
Subjective / Review of Systems
Review of Systems: No Fever, No Chills and Skin Rash (On the back)
Vital Signs / Physical Exam
Vital Signs
Vital Signs
Temp Pulse Resp BP Pulse Ox
98.3 F 90 18 133/77 98
10/12/24 07:28 10/12/24 07:28 10/12/24 07:28 10/12/24 07:28 10/12/24 07:28
Physical Exam
Constitutional: Chronically Ill
Pulmonary: Non Labored
Musculoskeletal: Other (Right lower back has a small lump/nodule. Soft, mildly tender, no drainage.)
Skin: Warm and Other (Large area of dark erythroderma with dry flaking yellow-brown skin over and around the the lump/nodule.)
Neurological: Awake
Psychological: Calm
Objective Data
Lab Data
Lab Results
10/11/24 05:04
10/11/24 05:04
PT 23.3 Sec (11.4-14.6) H 10/12/24 05:05
INR 2.01 10/12/24 05:05
Estimated Creat Clear 67 ml/min 10/11/24 05:04
Lactic Acid Cancelled 10/10/24 17:30
Total Bilirubin 1.0 mg/dl (0.2-1.3) 10/10/24 11:55
AST 13 U/L (17-59) L 10/10/24 11:55
ALT < 10 U/L (0-50) 10/10/24 11:55
Alkaline Phosphatase 96 U/L (38-126) 10/10/24 11:55
Most recent labs reviewed.
Micro Results:
10/10/24 13:28 Blood Culture - Preliminary
Blood/Venous No Growth in 24 hours- Final report to follow
10/10/24 13:36 Blood Culture - Preliminary
Blood/Venous No Growth in 24 hours- Final report to follow
10/10/24 11:55 Urine Culture - Preliminary
Urine
--- NOTE | 2024-10-12 10:54 | CON.GS ---
Consultation
-
Date/Time Consultation Performed: 10/11/24
Requesting Provider: Alysia Mathias
Performing Provider: Cayla
Reason for Consultation: Soft tissue mass lower right back
Medical History
-
Chief Complaint: back skin pain
History of Present Illness:
84M with tender red area to his back for several weeks. He is bedbound and is non-compliant with turning and offloading. He was admitted for an area of cellulitis on his back. There is a soft tissue mass present in the area. His home nurse aspirated
it with zero return.
Past Medical History
Past Medical History: Other (Suprapubic tube dysfunction, chronic Christopher catheter, right pleural effusion s/p thoracentesis 07/05/2024, atrial fibrillation, chronic right bundle branch block, COPD, peripheral neuropathy, hypercholesterolemia, history
of DVT/PE, history of colon cancer status post robotic colectomy, bedbound )
Past Surgical History: Other (Reports Orthopedic (Right knee surgery) and Other (Hernia repair))
Social History
Tobacco: Former Smoker
Alcohol: None
Drug: None
Personal:
Living: With Family
Family History
Family History: Reviewed & Noncontributory
Allergies / Home Medications
Allergy/AdvReac Type Severity Reaction Status Date / Time
cheese Allergy Unknown Verified 07/04/24 16:29
chocolate flavor Allergy Unknown Verified 07/04/24 16:29
cortisone (Cortisone) Allergy Unknown Verified 07/04/24 16:29
natalia Allergy Unknown - Verified 07/04/24 16:29
natalia yeison
orange (food color) Allergy Vertigo Verified 07/04/24 16:29
from
artifical
coloring
tea tree Allergy Unknown - Verified 07/04/24 16:29
iced tea
morphine AdvReac Vomiting Verified 07/04/24 16:29
�Medication �Instructions �Recorded �Confirmed �Type
cetirizine 10 mg tablet 10 mg PO HS Allergies 05/04/21 10/10/24 History
warfarin 1 mg tablet 1 mg PO WESA@1800 Blood clot 01/22/22 10/10/24 History
prevention/tx
warfarin 1 mg tablet 2 mg PO SUMOTUTHFR@1600 Blood Clot 08/20/22 10/10/24 History
Prevention/Tx
Citric Acid Capsules 1 cap PO DAILY Supplement 10/10/24 10/10/24 History
acetaminophen 325 mg tablet 650 mg PO Q6HPRN PRN mild pain 10/10/24 10/10/24 History
(Tylenol)
glucos 375 mg-msm 375 1 tab PO DAILY Supplement 10/10/24 10/10/24 History
bl-[id number]-kgjrlhzz 20
mg-antiarthritic3 tablet
(Arthri-Flex)
Review of Systems
-
A 10 point review of systems was completed, and was negative except as per HPI.
Physical Exam
Vital Signs
Temp Pulse Resp BP Pulse Ox
98.3 F 90 18 133/77 98
10/12/24 07:28 10/12/24 07:28 10/12/24 07:28 10/12/24 07:28 10/12/24 07:28
10/11/24 10/12/24 10/13/24
06:59 06:59 06:59
Actual Weight 80.9 kg
Body Mass Index (BMI) 0.0
Lab Results
10/11/24 05:04
10/11/24 05:04
WBC 7.7 10^3/uL (4.8-10.8) 10/11/24 05:04
Hgb 10.7 g/dL (13.0-18.0) L 10/11/24 05:04
Hct 32.3 % (39.0-52.0) L 10/11/24 05:04
Plt Count 177 10^3/uL (130-400) D 10/11/24 05:04
Abs Immat Gran (auto) 0.0 10^3/uL (0-0.05) 10/10/24 11:55
Neutrophils % 60.7 % (42.2-75.2) 10/10/24 11:55
Physical Exam
General: No Apparent Distress
Skin: Other (large area of cellulitis to right lower back, inclusive of a 3cm soft smooth rubbery mobile subq mass without puncta or fluctuance)
Neuro: AO x 3
Psych: Calm
Data Reviewed
-
CT Scan: Image Personally Visualized and interpreted and Report Reviewed by me
Labs: Labs Reviewed by me
Old Records: Reviewed
Assessment / Plan
-
84M with back cellulitis 2/2 poor offloading compliance and incidental lipoma
The mass was aspirated by me at bedside with zero return
This is a lipoma, it is not involved in the infection
Do not recommend any intervention for it while there is cellulitis
GS will s/o pls call with ?s
--- NOTE | 2024-10-12 14:20 | W.PN.HOSP.TC ---
Today's Communication/Plan
-
Assessment / Plan
Assessment / Plan
General: No Apparent Distress and Comfortable however complaining of pain because he was just rolled
HEENT: Normocephalic and Atraumatic
Respiratory: Clear to Auscultation
Cardiac: Regular Rhythm
GI: Soft, Nontender and Nondistended
Genito-urinary: Christopher (yellow urine)
Musculoskeletal: No Clubbing and No Cyanosis
Psych: Calm
Lipoma versus cyst versus infected cyst on back with surrounding area of cellulitis
Continue Ancef
ID following. Appreciate input from ID for transition to orals
Surgery did not believe excision was indicated as they suspect this is a lipoma instead of infected cyst
BPH with urinary retention
Chronic Christopher
Family requesting SPT, per admission note urology contacted this should be done as an outpatient
Asymptomatic bacteriuria
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
On Ancef for cellulitis which would also cover any type of urinary tract infection
Elevated lactic acid
IV fluids
Likely related to dehydration
History of DVT PE
Continue Coumadin
Anticipated Discharge: Within 24 hours
Subjective/Interval History
-
Date of Service: October 12, 2024
Seen and examined. No new complaints. No acute overnight events
Objective Data
-
Labs:
Laboratory Results
10/12/24
05:05
PT 23.3 H
INR 2.01
Vital Signs:
Vital Signs
Temp Pulse Resp BP Pulse Ox
98.3 F 90 18 133/77 98
10/12/24 07:28 10/12/24 07:28 10/12/24 07:28 10/12/24 07:28 10/12/24 08:30
I&O
10/11/24 10/12/24 10/13/24
06:59 06:59 06:59
Intake Total 630 / 630
Output Total 1800 / 1800
Balance -1170 / -1170
--- NOTE | 2024-10-12 14:44 | W.DCSUMMARY ---
Discharge Summary
Discharge Data
Date of Admission: 10/10/24
Date of Discharge: 10/12/24
-
Pending Results: No
Hospital Course
84 year old male with history of COPD, HTN, hypercholesterolemia, DVT, chronic back pain, prostatic hypertrophy, kidney stones, chronic juarez, urinary retention, arthritis
Presented with painful red rash on the back. Started on IV antibiotics. Evaluated by infectious disease as recommended surgery consult for potential infected cyst. Surgery evaluated believed this lump was a lipoma rather than infected cyst and
did not believe an excision was required. Therefore continued on IV antibiotics with Ancef and evaluated by wound care. Wound care instructions below. IV antibiotics will be converted to cephalexin 500 mg Q6 for a total of 10 days.
Wound Care Instructions
Back- Apply Mineral oil to skin daily. Avoid sliding.
Sacrum- Apply Calazime to open areas. Apply Mineral oil to dry, flaking areas PRN
Rght lower leg- Keep covered with silicone border foam or other dry dressing. Change Q 48 hours.
Continue with air bed
Continue with off-loading heals with pillows under calves
More than 30 minutes spent in discharge including
Final examination of the patient
Summarizing hospital stay
Instructions for continuing care to all relevant caregivers
Preparation of discharge records, prescriptions, and referral forms
Total time spent (in minutes): 36
Discharge Plan
-
Patient Disposition: Home with Home Care
Discharge Diagnosis/Procedures: back cellulitis
lipoma
Condition: Fair
Diet: As tolerated, Regular, Low Fat, Low Cholesterol, 2 Gram Sodium, Low Residue, Diabetic, Carb Controlled and No added salt
Activity Restrictions/Additional Instructions:
Presented with painful red rash on the back. Started on IV antibiotics. Evaluated by infectious disease as recommended surgery consult for potential infected cyst. Surgery evaluated believed this lump was a lipoma rather than infected cyst and
did not believe an excision was required. Therefore continued on IV antibiotics with Ancef and evaluated by wound care. Wound care instructions below. IV antibiotics will be converted to cephalexin 500 mg Q6 for a total of 10 days.
Wound Care Instructions Back- Apply Mineral oil to skin daily. Avoid sliding.
Sacrum- Apply Calazime to open areas. Apply Mineral oil to dry, flaking areas PRN
Rght lower leg- Keep covered with silicone border foam or other dry dressing. Change Q 48 hours.
Continue with air bed
Continue with off-loading heals with pillows under calves
Referrals:
Jackie Wilson MD [Family Provider, Internal Medicine]
Prescriptions:
New
cephalexin 500 mg capsule
500 mg PO QID Qty: 40 0RF
Continued
cetirizine 10 MG tablet
10 mg PO HS
warfarin 1 mg Tablet
1 mg PO WESA@1800
warfarin 1 mg Tablet
2 mg PO SUMOTUTHFR@1600
acetaminophen [Tylenol] 325 mg Tablet
650 mg PO Q6HPRN PRN (Reason: mild pain)
Arthri-Flex 375-375-20 mg Tablet
1 tab PO DAILY
Citric Acid Capsules
1 cap PO DAILY
Discharge Orders:
Discharge Patient (As Directed); Ordered 10/12/24
Ordered By: Jerel Mathias
Discharge Date and Time
Print Language: ESTONIAN
[2024-10-12 15:16] VITALS: BP 129/67
[2024-10-12] MEDS: TYLENOL 650 MG PO (15:28)
[2024-10-12] MEDS: COUMADIN 2 MG PO (17:10)
[2024-10-12] MEDS: FLUSH (NSS) 2 FLUSH IV (17:13)
--- NOTE | 2024-10-12 20:01 | PTCARENOTE ---
Transport arrive to room at 1944. Pt transferred to stretcher. Confirmed destination with patient and EMS staff. Another set of discharge instructions printed for patient. Pt left floor on transport stretcher at 1954. All IVs removed.
== END 2024-10-12 19:53 | disposition home health service (06) | DRG 603 ==
LOC: 3 WEST ACU 15:19
PROVIDERS: Student in an Organized Health Care Education/Training Program; ADMITTING PHYSICIAN Hospitalist; ATTENDING PHYSICIAN Hospitalist; CONSULT PHYSICIAN Surgery; EMERGENCY PHYSICIAN Emergency Medicine; FAMILY PHYSICIAN Internal Medicine; OTHER PHYSICIAN Internal Medicine Infectious Disease
DX: L03.312 Cellulitis of back [any part except buttock and flank] (principal); J96.10 Chronic respiratory failure, unspecified whether with hypoxia or hypercapnia; I48.20 Chronic atrial fibrillation, unspecified; D17.9 Benign lipomatous neoplasm, unspecified; Z79.01 Long term (current) use of anticoagulants; D64.9 Anemia, unspecified; Z74.01 Bed confinement status; Z85.038 Personal history of other malignant neoplasm of large intestine; E78.00 Pure hypercholesterolemia, unspecified; J44.9 Chronic obstructive pulmonary disease, unspecified; I48.0 Paroxysmal atrial fibrillation; Z91.199 Patient's noncompliance with other medical treatment and regimen due to unspecified reason; L89.152 Pressure ulcer of sacral region, stage 2; L89.611 Pressure ulcer of right heel, stage 1; L89.621 Pressure ulcer of left heel, stage 1; Z87.442 Personal history of urinary calculi; Z86.718 Personal history of other venous thrombosis and embolism; Z86.711 Personal history of pulmonary embolism; Z87.891 Personal history of nicotine dependence; I10 Essential (primary) hypertension; N40.1 Benign prostatic hyperplasia with lower urinary tract symptoms; R33.9 Retention of urine, unspecified
CPT/HCPCS: 80048; 80053; 81003; 81015; 83605; 85025; 85027; 85610; 87040; 87086; 96374; 99285

== ENCOUNTER 2024-10-29 05:58 | Day surgery (SDC) | payer MEDICARE, OTHER, SELFPAY ==
[2024-10-29] VITALS (8 sets, daily range): BP systolic 121–155; BP diastolic 68–85; BMI 22.6
[2024-10-29 08:41] LABS: Hematocrit 32.7 % (39.0-52.0); Hemoglobin 10.8 g/dL (13.0-18.0); Mean Corp Hgb Conc. 33.0 g/dL (33.0-37.0); Mean Corpuscular Volume 97.9 fL (80.0-94.0); Platelet Count 192 10^3/uL (130-400); Red Cell Dist. Width 14.0 % (11.5-14.5)
[2024-10-29 09:05] LABS: ALT (SGPT) < 10 U/L (0-50); AST (SGOT) 15 U/L (17-59); Albumin 2.8 g/dl (3.5-5.0); Alkaline Phosphatase 84 U/L (38-126); Blood Urea Nitrogen 22 mg/dl (9-20); Calcium 8.4 mg/dl (8.4-10.2); Carbon Dioxide 28 mmol/L (22-30); Chloride 106 mmol/L (98-107); Estimated Creatinine Clearance 67 ml/min; Glucose 99 mg/dl (70-99); Potassium 4.0 mmol/L (3.5-5.1); Sodium 137 mmol/L (135-145); Total Protein 6.1 g/dl (6.3-8.2); eGFR > 60.00
== END 2024-10-29 12:20 | disposition home or self-care (01) ==
LOC: SDS 05:58
PROVIDERS: ATTENDING PHYSICIAN Surgery
DX: N31.9 Neuromuscular dysfunction of bladder, unspecified (principal); Z87.448 Personal history of other diseases of urinary system
CPT/HCPCS: 51040; 80053; 85027